=== PATIENT | male | born 1945 | race Caucasian/White ===

== ENCOUNTER 2016-03-11 08:36 | Outpatient (CLI) | payer MEDICARE, OTHER | END 2016-03-11 08:37 | disposition home or self-care (01) | DX: E78.2 Mixed hyperlipidemia (principal); Z79.899 Other long term (current) drug therapy; N40.0 Benign prostatic hyperplasia without lower urinary tract symptoms; R73.09 Other abnormal glucose ==

== ENCOUNTER 2016-04-17 22:13 | Emergency (ER) | payer MEDICARE, OTHER ==
[2016-04-17] MEDS ORDERED: ACETAMINOPHEN 500 MG TABLET PO STA (22:26)
[2016-04-17] MEDS ORDERED: SODIUM CHLORIDE 0.9% 1,000 ML IV ONE (22:26)
[2016-04-17] MEDS ORDERED: ACETAMINOPHEN 1,000 MG/100 ML 100 ML IV ONE (22:34)
[2016-04-17] MEDS ORDERED: ACETAMINOPHEN 1,000 MG/100 ML 100 ML IV STA (23:09)
[2016-04-18] MEDS ORDERED: IBUPROFEN 600 MG TABLET PO ONE
== END 2016-04-18 00:50 | disposition home or self-care (01) ==
DX: R50.9 Fever, unspecified (principal); I10 Essential (primary) hypertension; R94.31 Abnormal electrocardiogram [ECG] [EKG]; E78.00 Pure hypercholesterolemia, unspecified; Z86.73 Personal history of transient ischemic attack (TIA), and cerebral infarction without residual deficits; Z87.442 Personal history of urinary calculi
CPT/HCPCS: 36415; 70450; 71020; 80053; 81001; 83605; 83690; 83735; 83880; 84100; 84443; 84484; 85025; 85610; 85730; 87040; 87275; 87276; 93005; 93010; 96361; 96365; 99284; 99285; J0131

== ENCOUNTER 2016-10-21 07:43 | Outpatient (CLI) | payer MEDICARE, OTHER ==
[2016-10-21 08:31] LABS: BUN - BLOOD UREA NITROGEN 15 mg/dL (6-20); CARBON DIOXIDE - CO2 27 mmol/L (21-32); CHLORIDE 102 mmol/L (101-111); CHOLESTEROL 116 mg/dL; GFR - MDRD 74 (>89); HDL CHOLESTEROL 29 mg/dL; LDL/HDL RATIO 1.6 (<3.6); POTASSIUM 3.8 mmol/L (3.5-5.0); SODIUM 137 mmol/L (135-145); TRIGLYCERIDES 203 mg/dL; VLDL CHOLESTEROL 41 mg/dL
[2016-10-23 14:07] LABS: TEST RESULT REPORT (())
== END 2016-10-21 07:44 | disposition home or self-care (01) ==
LOC: LAB 07:43
PROVIDERS: ATTEND Internal Medicine Cardiovascular Disease
DX: E78.5 Hyperlipidemia, unspecified (principal); Z79.899 Other long term (current) drug therapy
CPT/HCPCS: 36415; 80051; 80061; 81599; 82172; 82565; 84450; 84520

== ENCOUNTER 2017-03-09 08:11 | Outpatient (CLI) | payer MEDICARE, OTHER ==
[2017-03-09 08:42] LABS: BASOPHILS % (AUTO) 0.7 %; EOSINOPHILS # (AUTO) 0.1 10^3/uL (0.0-0.7); EOSINOPHILS % (AUTO) 1.8 %; HGB - HEMOGLOBIN 13.9 g/dL (14.0-18.0); LYMPHOCYTES # (AUTO) 2.6 10^3/uL (1.5-3.5); LYMPHOCYTES % (AUTO) 37.9 %; MEAN CORPUSCULAR HEMOGLOBIN 28.7 pg (27.0-31.0); MEAN CORPUSCULAR HGB CONC 34.1 g/dL (32.0-36.0); MEAN CORPUSCULAR VOLUME 84.1 fL (80.0-94.0); MEAN PLATELET VOLUME 8.1 fL (7.4-11.4); MONOCYTES # (AUTO) 0.6 10^3/uL (0.0-1.0); MONOCYTES % (AUTO) 8.4 %; NEUTROPHILS # (AUTO) 3.5 10^3/uL (1.5-6.6); NEUTROPHILS % (AUTO) 51.2 %; PLT - PLATELET COUNT 166 10^3/uL (130-450); RED BLOOD COUNT 4.85 10^6/uL (4.70-6.10); RED CELL DISTRIBUTION WIDTH 13.9 % (12.0-15.0); WHITE BLOOD COUNT 6.8 x10^3/uL (4.8-10.8)
[2017-03-09 08:59] LABS: HB2 TOTAL 15.4 g/dL; HEMOGLOBIN A1C 0.7 g/dL; HEMOGLOBIN A1C % 6.3 % (4.6-6.2)
[2017-03-09 09:01] LABS: ALBUMIN 3.9 g/dL (3.2-5.5); ALBUMIN/GLOBULIN RATIO 1.1 (1.0-2.2); ALKALINE PHOSPHATASE 53 IU/L (42-121); ALT ALANINE AMINOTRANSFERASE 33 IU/L (10-60); AST ASPARTATE AMINOTRANSFERASE 32 IU/L (10-42); BILIRUBIN,TOTAL 0.8 mg/dL (0.2-1.0); BUN - BLOOD UREA NITROGEN 12 mg/dL (6-20); CALCIUM 9.3 mg/dL (8.5-10.3); CARBON DIOXIDE - CO2 26 mmol/L (21-32); CHLORIDE 101 mmol/L (101-111); CHOL/HDL RATIO 3.9 (<5.0); CHOLESTEROL 117 mg/dL; GFR - MDRD 74 (>89); GLUCOSE 124 mg/dL (70-100); HDL CHOLESTEROL 30 mg/dL; LDL CHOLESTEROL,CALCULATED 55 mg/dL; LDL/HDL RATIO 1.8 (<3.6); SODIUM 137 mmol/L (135-145); TOTAL PROTEIN 7.5 g/dL (6.7-8.2); VLDL CHOLESTEROL 32 mg/dL
== END 2017-03-09 08:12 | disposition home or self-care (01) ==
LOC: LAB 08:11
PROVIDERS: ATTEND Internal Medicine
DX: R73.09 Other abnormal glucose (principal); I10 Essential (primary) hypertension; E78.5 Hyperlipidemia, unspecified; N40.0 Benign prostatic hyperplasia without lower urinary tract symptoms; I48.91 Unspecified atrial fibrillation
CPT/HCPCS: 36415; 80053; 80061; 83036; 83721; 85025

== ENCOUNTER 2017-04-06 11:45 | Outpatient (CLI) | payer MEDICARE, OTHER | END 2017-04-06 11:46 | disposition home or self-care (01) | LOC: LAB 11:45 | PROVIDERS: ATTEND Urology | DX: Z12.5 Encounter for screening for malignant neoplasm of prostate (principal) | CPT/HCPCS: 36415; G0103; 84153 ==

== ENCOUNTER 2017-06-11 10:13 | Outpatient (CLI) | payer MEDICARE, OTHER ==
[2017-06-11 10:47] LABS: BASOPHILS # (AUTO) 0.1 10^3/uL (0.0-0.1); BASOPHILS % (AUTO) 0.9 %; EOSINOPHILS # (AUTO) 0.1 10^3/uL (0.0-0.7); EOSINOPHILS % (AUTO) 1.4 %; HGB - HEMOGLOBIN 14.5 g/dL (14.0-18.0); LYMPHOCYTES # (AUTO) 1.9 10^3/uL (1.5-3.5); MEAN CORPUSCULAR HEMOGLOBIN 28.6 pg (27.0-31.0); MEAN CORPUSCULAR HGB CONC 33.9 g/dL (32.0-36.0); MEAN CORPUSCULAR VOLUME 84.3 fL (80.0-94.0); MEAN PLATELET VOLUME 7.7 fL (7.4-11.4); MONOCYTES # (AUTO) 0.6 10^3/uL (0.0-1.0); MONOCYTES % (AUTO) 8.7 %; NEUTROPHILS # (AUTO) 4.2 10^3/uL (1.5-6.6); PLT - PLATELET COUNT 177 10^3/uL (130-450); RED BLOOD COUNT 5.07 10^6/uL (4.70-6.10); RED CELL DISTRIBUTION WIDTH 13.9 % (12.0-15.0); WHITE BLOOD COUNT 6.9 x10^3/uL (4.8-10.8)
[2017-06-11 10:56] LABS: CREATININE 0.8 mg/dL (0.6-1.2)
== END 2017-06-11 10:14 | disposition home or self-care (01) ==
LOC: LAB 10:13
PROVIDERS: ATTEND Internal Medicine Cardiovascular Disease
DX: I42.8 Other cardiomyopathies (principal); I48.2 Chronic atrial fibrillation; E26.09 Other primary hyperaldosteronism
CPT/HCPCS: 36415; 80051; 82565; 84520; 85025

== ENCOUNTER 2017-09-12 09:10 | Inpatient (IN) | payer MEDICARE, OTHER ==
[2017-09-12] MEDS ORDERED: IOPAMIDOL-300 100 ML VIAL ONE (09:24)
[2017-09-12] MEDS ORDERED: ACETAMINOPHEN 325 MG TABLET PO STA (09:27)
[2017-09-12] MEDS ORDERED: SODIUM CHLORIDE 0.9% 1,000 ML IV ONE (09:27)
--- NOTE | 2017-09-12 09:29 | ED Physician Documentation ---
History of Present Illness - Stated complaint Stated Complaint: POSS CVA - Chief complaint Chief Complaint: Neuro - Additonal information Additional information: hx from pt 71 male to ED with 2 problems 1) high fever - no [employer] CP AP, nauseated by no vomiting, no diarrhea, no cough , no urinary sx, pain behind R knee but no rash 2) expressive aphasia, onset not known, was noticed at 9 AM today, last normal last night, has a fib on xarelto per had expressive aphasia with a fever in the past, aphasia resolved when fver did, no source for fever was found but the next day he was found to have cellultis of the LLE related to a new med he started on PMD DR Olivo Review of Systems Constitutional: reports: Fever Eyes: denies: Decreased vision Ears: denies: Loss of hearing Throat: denies: Sore throat Cardiac: denies: Chest pain / pressure, Palpitations Respiratory: denies: Dyspnea, Cough GI: reports: Nausea. denies: Abdominal Pain, Vomiting, Diarrhea : denies: Dysuria Skin: denies: Rash (none new) Musculoskeletal: denies: Neck pain, Back pain Neurologic: reports: Difficulty speaking. denies: Generalized weakness, Focal weakness, Numbness, Seizure, Altered mental status, Headache, Head injury Endocrine: reports: Easy bruising / bleeding (xarelto) Immunocompromised: denies: Immunocompromised PD PAST MEDICAL HISTORY - Past Medical History Cardiovascular: Hypertension, High cholesterol, Atrial fibrillation, Valve disorder GI: Hiatal hernia : Benign prostate hypertrophy, Kidney stones Derm: Other - Past Surgical History Past Surgical History: Yes - Present Medications Home Medications: Ambulatory Orders Medication Instructions Recorded Confirmed Amlodipine Besylate 10 mg PO DAILY 07/27/12 09/12/17 Carvedilol 25 mg PO BID 08/09/13 09/12/17 Digoxin [Digox] 250 mcg PO DAILY 08/09/13 09/12/17 Finasteride 5 mg PO DAILY 08/09/13 09/12/17 Losartan Potassium 100 mg PO DAILY 08/09/13 09/12/17 Tamsulosin [Flomax] 0.4 mg PO 1730 08/09/13 09/12/17 Apixaban [Eliquis] 5 mg PO BID 04/17/16 09/12/17 Rosuvastatin Calcium 5 mg PO DAILY 09/12/17 09/12/17 Spironolactone 100 mg PO Q2D@0600 09/12/17 09/12/17 - Allergies Allergies/Adverse Reactions: Allergies Allergy/AdvReac Type Severity Reaction Status Date / Time bee venom protein (honey bee) Allergy Anaphylaxis Verified 09/12/17 09:21 - Social History Does the pt smoke?: No Smoking Status: Never smoker Does the pt drink ETOH?: Yes Does the pt have substance abuse?: No - POLST Patient has POLST: No PD ED PE NORMAL - Vitals Vital signs reviewed: Yes (febrile tachy tachypnic hypertensive) - General General: Alert and oriented X 3 - HEENT HEENT: Atraumatic, PERRL - Neck Neck: No bony TTP - Cardiac Cardiac: RRR - Respiratory Respiratory: No respiratory distress, Clear bilaterally - Abdomen Abdomen: Soft, Non tender - Derm Derm: Normal color - Extremities Extremities: Normal ROM s pain - Neuro Neuro: Alert and oriented X 3, arts administrator 2-12 intact, No motor deficit, No sensory deficit, Other. No: Normal speech (expressive aphasia) Eye Opening: Spontaneous Motor: Obeys Commands Verbal: Oriented GCS Score: 15 - Psych Psych: Normal mood Results - Vitals Vitals: Vital Signs - 24 hr 09/12/17 09/12/17 09/12/17 09:15 10:44 11:00 Temperature 39.3 C H 38.2 C H Heart Rate 138 H 109 H 108 H Respiratory 26 H 25 H 27 H Rate Blood Pressure 140/94 H 128/75 126/81 H O2 Saturation 96 94 93 09/12/17 11:33 Temperature Heart Rate 96 Respiratory 27 H Rate Blood Pressure 132/78 H O2 Saturation 93 Oxygen O2 Source Room air - EKG (time done) 0954 Rate: Rate (enter#) (114) Rhythm: Atrial fibrillation Intervals: RBBB Ischemia: ST depression (precordial) Other comments: Other comments (similar to 2017 EKG) - Labs Labs: Laboratory Tests 09/12/17 09/12/17 09/12/17 09:17 09:20 09:20 WBC 20.5 H RBC 4.92 Hgb 14.0 Hct 41.6 L MCV 84.6 MCH 28.5 MCHC 33.6 RDW 14.3 Plt Count 161 MPV 8.0 Neut # (Auto) 18.1 H Lymph # (Auto) 0.7 L Merrick # (Auto) 1.3 H Eos # (Auto) 0.0 Baso # (Auto) 0.3 H Absolute Nucleated RBC 0.00 Band Neuts % (Manual) Not Reportable Abnorm Lymph % (Manual) Not Reportable Nucleated RBC % 0.0 Neutrophils # (Manual) Not Reportable Lymphocytes # (Manual) Not Reportable Monocytes # (Manual) Not Reportable Eosinophils # (Manual) Not Reportable Basophils # (Manual) Not Reportable Differential Comment MANUAL=AUTO DIFF WBC Morphology 1+ REACTIVE LYMPHS Sodium 130 L Potassium 4.2 Chloride 96 L Carbon Dioxide 24 Anion Gap 10.0 BUN 18 Creatinine 1.1 Estimated GFR (MDRD) 66 L Glucose 159 H POC Whole Bld Glucose 136 H Lactic Acid Calcium 9.1 Total Bilirubin 1.3 H AST 36 ALT 37 Alkaline Phosphatase 60 Total Protein 7.8 Albumin 4.1 Globulin 3.7 Albumin/Globulin Ratio 1.1 Lipase 32 TSH Urine Color Urine Clarity Urine pH Ur Specific [place] Urine Protein Urine Glucose (UA) Urine Ketones Urine Occult Blood Urine Nitrite Urine Bilirubin Urine Urobilinogen Ur Leukocyte Esterase Urine RBC Urine WBC Ur Squamous Epith Cells Urine Bacteria Ur Microscopic Review Urine Culture Comments 09/12/17 09/12/17 09/12/17 09:20 09:20 10:40 WBC RBC Hgb Hct MCV MCH MCHC RDW Plt Count MPV Neut # (Auto) Lymph # (Auto) Merrick # (Auto) Eos # (Auto) Baso # (Auto) Absolute Nucleated RBC Band Neuts % (Manual) Abnorm Lymph % (Manual) Nucleated RBC % Neutrophils # (Manual) Lymphocytes # (Manual) Monocytes # (Manual) Eosinophils # (Manual) Basophils # (Manual) Differential Comment WBC Morphology Sodium Potassium Chloride Carbon Dioxide Anion Gap BUN Creatinine Estimated GFR (MDRD) Glucose POC Whole Bld Glucose Lactic Acid 2.4 H Calcium Total Bilirubin AST ALT Alkaline Phosphatase Total Protein Albumin Globulin Albumin/Globulin Ratio Lipase TSH 1.37 Urine Color YELLOW Urine Clarity CLEAR Urine pH 7.0 Ur Specific [place] <=1.005 Urine Protein 30 H Urine Glucose (UA) NEGATIVE Urine Ketones NEGATIVE Urine Occult Blood MODERATE H Urine Nitrite NEGATIVE Urine Bilirubin NEGATIVE Urine Urobilinogen 1 (NORMAL) Ur Leukocyte Esterase NEGATIVE Urine RBC TNTC H Urine WBC 4-5 Ur Squamous Epith Cells RARE Squamous Urine Bacteria Rare Ur Microscopic Review INDICATED Urine Culture Comments NOT INDICATED - Rads (name of study) CXR Radiology: See rad report (mild bibasilar opacity atelectasis or infiltrate) CTH Radiology: See rad report (no acute) CTA brain Radiology: See rad report (no acute) CTA neck Radiology: See rad report (no acute) PD MEDICAL DECISION MAKING - ED course ED course: pt is not a TPA candidate 2/2 xarelto and last known normal was last night has had similar sx with infection before CTH no acute process CTA head and neck no acute could consider MRI and echo but does not need transfer to neuro facility as ED wup does not show indication for TPA or IR pt is septic CXR non diagnostic - could be infiltrates could be atelectais urine nwg elev lactate per last time it ended up being LLE cellulitis but not visible on initial exam will start empiric ab including vanco for skin will admit called hospitalist at 1125 AM - Sepsis Event Vital Signs: Vital Signs - 24 hr 09/12/17 09/12/17 09/12/17 09:15 10:44 11:00 Temperature 39.3 C H 38.2 C H Heart Rate 138 H 109 H 108 H Respiratory 26 H 25 H 27 H Rate Blood Pressure 140/94 H 128/75 126/81 H O2 Saturation 96 94 93 09/12/17 11:33 Temperature Heart Rate 96 Respiratory 27 H Rate Blood Pressure 132/78 H O2 Saturation 93 Oxygen O2 Source Room air Departure - Departure Disposition: 66 [facility] DC/Xfer Clinical Impression: Aphasia, Hematuria Sepsis Qualifiers: Sepsis type: sepsis due to unspecified organism Qualified Code(s): A41.9 - Sepsis, unspecified organism Condition: Serious Discharge Date/Time: 09/12/17 13:02 NIHSS - Time Time: 09:20 - Level of Consciousness Level of consciousness: (0) Alert, Keenly responsive LOC Questions: (0) Answers both Q's correct LOC Commands: (0) Performs both correctly - Gaze Best Gaze: (0) Normal - Visual Visual: (0) No loss - Facial Palsy Facial Palsy: (0) Normal, symmetrical movement - Motor Arms (both separate) Motor Arm (right): (0) No drift Motor Arm (left): (0) No drift - Motor Legs (both separate) Motor Leg (right): (0) No drift Motor Leg (left): (0) No drift - Limb Ataxia Limb Ataxia: (0) Absent - Sensory Sensory: (0) Normal - Best Language Best Language: (2) Severe aphasia - Dysarthria Dysarthria: (0) Normal - Extinction and Inattention (formally neg Extinction and inattention: (0) No abnormality - Total Score/Results Total Score/Result: 2
[2017-09-12 09:46] LABS: BASOPHILS # (AUTO) 0.3 10^3/uL (0.0-0.1); BASOPHILS % (AUTO) 1.6 %; LYMPHOCYTES # (AUTO) 0.7 10^3/uL (1.5-3.5); LYMPHOCYTES % (AUTO) 3.5 %; MEAN CORPUSCULAR HEMOGLOBIN 28.5 pg (27.0-31.0); MEAN CORPUSCULAR HGB CONC 33.6 g/dL (32.0-36.0); MEAN CORPUSCULAR VOLUME 84.6 fL (80.0-94.0); MONOCYTES # (AUTO) 1.3 10^3/uL (0.0-1.0); MONOCYTES % (AUTO) 6.4 %; NEUTROPHILS # (AUTO) 18.1 10^3/uL (1.5-6.6); NEUTROPHILS % (AUTO) 88.5 %; PLT - PLATELET COUNT 161 10^3/uL (130-450); RED BLOOD COUNT 4.92 10^6/uL (4.70-6.10); RED CELL DISTRIBUTION WIDTH 14.3 % (12.0-15.0); WHITE BLOOD COUNT 20.5 x10^3/uL (4.8-10.8)
[2017-09-12] MEDS ORDERED: IOPAMIDOL-300 100 ML VIAL IVP ONE (09:54)
[2017-09-12 09:55] LABS: ALBUMIN 4.1 g/dL (3.2-5.5); ALBUMIN/GLOBULIN RATIO 1.1 (1.0-2.2); BILIRUBIN,TOTAL 1.3 mg/dL (0.2-1.0); CALCIUM 9.1 mg/dL (8.5-10.3); CREATININE 1.1 mg/dL (0.6-1.2); TOTAL PROTEIN 7.8 g/dL (6.7-8.2)
--- NOTE | 2017-09-12 10:04 | XRAY Report ---
Procedure Date: 09/12/2017 Accession Number: [id number] / [id number] Procedure: XR - Chest 2 View X-Ray CPT Code: 33699 FULL RESULT: EXAM: CHEST RADIOGRAPHY EXAM DATE: 09/12/2017 09:49 AM. CLINICAL HISTORY: Fever. COMPARISON: 04/17/2016. TECHNIQUE: 2 views. FINDINGS: Lungs/Pleura: Mild central pulmonary vascular congestion. Mild bibasal opacity, atelectasis or infiltrate. Mediastinum: Mild cardiomegaly. Mildly tortuous aorta. Other: None. IMPRESSION: Mild bibasal opacity, atelectasis or infiltrate. Cardiomegaly. RADIA
--- NOTE | 2017-09-12 10:05 | CT Report ---
Procedure Date: 09/12/2017 Accession Number: [id number] / [id number] Procedure: CT - Head W/O Stroke Protocol CPT Code: FULL RESULT: EXAM: CT HEAD EXAM DATE: 09/12/2017 09:32 AM. CLINICAL HISTORY: Expressive aphasia. COMPARISON: CT head 04/17/2016. TECHNIQUE: Multiaxial CT images were obtained from the foramen magnum to the vertex. Reformats: Sagittal and coronal. IV contrast: None. In accordance with CT protocol optimization, one or more of the following dose reduction techniques were utilized for this exam: automated exposure control, adjustment of mA and/or KV based on patient size, or use of iterative reconstructive technique. FINDINGS: Parenchyma: Chronic right parietal dystrophic calcification and multifocal areas of encephalomalacia in the right occipital, right posterior temporal, right parietal, and left frontal lobe, similar to prior. No evidence of acute infarction. No intraparenchymal hemorrhage. Extraaxial Spaces: Normal for age. No subdural or epidural collections identified. Ventricles: Normal in size and position accounting for mild generalized cerebral and cerebellar volume loss. Sinuses and Orbits: Imaged paranasal sinuses, orbits, and mastoids show no significant abnormality. Bones: No evidence of fracture or calvarial defect. Other: None. IMPRESSION: 1. No definite acute intracranial abnormality. 2. Stable multifocal areas of cortical encephalomalacia and dystrophic calcification at the right parietal lobe. RADIA The call report notification system was initiated by Dr. Lavell Ramos at 10:00 hrs on 09/12/17. The above findings were discussed with Kyra Gonzalez by Dr. Lavell Ramos at 10:04 hrs on 09/12/17.
[2017-09-12 10:10] LABS: DIFFERENTIAL COMMENT MANUAL=AUTO DIFF
[2017-09-12] MEDS ORDERED: metroNIDAZOLE 500 MG/100 ML 500 MG/100 ML BAG IV STA (10:17)
[2017-09-12] MEDS ORDERED: CEFEPIME 2 GM in SODIUM CHLORIDE 0.9% MINIBAG 100 ML IV STA (10:17)
--- NOTE | 2017-09-12 10:28 | CT Report ---
Procedure Date: 09/12/2017 Accession Number: [id number] / [id number] Procedure: CT - Neck Angio CPT Code: FULL RESULT: EXAM: CT ANGIOGRAM NECK EXAM DATE: 09/12/2017 09:50 AM. CLINICAL HISTORY: Expressive aphasia. COMPARISON: HEAD W/O 04/17/2016. TECHNIQUE: Routine axial helical imaging was performed from the skull base through the aortic arch. Reconstructions: Routine multiplanar 3D MIP reconstructions. IV Contrast: 100 cc Isovue-300. Evaluation of arterial stenosis is based on a NASCET method of measurement. In accordance with CT protocol optimization, one or more of the following dose reduction techniques were utilized for this exam: automated exposure control, adjustment of mA and/or KV based on patient size, or use of iterative reconstructive technique. FINDINGS: Mild tortuosity and calcification of the aortic arch is noted. Normal three-vessel branching is seen. Moderate tortuosity and minimal scattered atherosclerotic calcification is seen involving great vessels off the arch. Right Carotid: The common carotid, internal carotid, and external carotid arteries are widely patent. No dissection, significant atherosclerotic plaque, or calcification identified. Minimal atherosclerotic calcification is seen at the CCA bifurcation. Left Carotid: The common carotid, internal carotid, and external carotid arteries are widely patent. No dissection, significant atherosclerotic plaque, or calcification identified. Minimal atherosclerotic calcification is seen at the CCA bifurcation and proximal ICA. Vertebrals: The vertebrobasilar system shows no stenoses. Intracranial Circulation: Normal. No stenoses or aneurysms of the visualized vessels. Other: The bones, soft tissues, and lung apices are within normal limits. Mild scattered cervical spondylosis is noted. IMPRESSION: 1. Unremarkable neck CT angiogram. No hemodynamically significant stenoses. No dissection. 2. Tortuosity of great vessels off the arch in the thoracic inlet. RADIA
--- NOTE | 2017-09-12 10:28 | CT Report ---
Procedure Date: 09/12/2017 Accession Number: [id number] / [id number] Procedure: CT - Head Angio CPT Code: FULL RESULT: EXAM: CT ANGIOGRAM HEAD. CT SCAN OF THE HEAD WITH CONTRAST. EXAM DATE: 09/12/2017 09:50 AM CLINICAL HISTORY: Expressive aphasia. Left-sided weakness. History of stroke. COMPARISON: CT scan of the head without contrast 09/12/2017, 04/17/2016. CT angiogram of the neck 09/12/2017. TECHNIQUE: - CT Scan Head: Using a multidetector scanner, axial images were acquired from the foramen magnum to the skull vertex following contrast administration. - CT Angiogram: Using a multidetector scanner, high-resolution axial images were acquired from the skull base through vertex following rapid infusion of intravenous contrast. Reformats: Multiplanar MIP reformats were reconstructed. Nascet criteria used for stenosis measurement. IV Contrast: 100 cc Isovue-300. In accordance with CT protocol optimization, one or more of the following dose reduction techniques were utilized for this exam: automated exposure control, adjustment of mA and/or KV based on patient size, or use of iterative reconstructive technique. FINDINGS: POST-CONTRAST HEAD: No abnormal enhancement. Cystic encephalomalacia with dystrophic calcification is seen from old infarct in the right occipital lobe. Subtle smaller focus of encephalomalacia is seen in the high posterior left superior frontal gyrus as well. This too is consistent with old ischemic change. These are unchanged. CT ANGIOGRAM HEAD: RIGHT: Internal Carotid artery: No evidence of dissection. No evidence of aneurysm along the intracranial ICA. Mild atherosclerotic calcification is seen. Anterior Cerebral Artery: Patent without significant stenosis, aneurysm, or vascular malformation. Middle Cerebral Artery: Patent without significant stenosis, aneurysm, or vascular malformation. Posterior Cerebral Artery: Patent without significant stenosis, aneurysm, or vascular malformation. Posterior Communicating Artery: Not well visualized. Vertebral Artery: Patent without significant stenosis. No evidence of dissection. The right PICA is dominant arising from the mid V4 segment. LEFT: Internal Carotid artery: No evidence of dissection. No evidence of aneurysm along the intracranial ICA. Mild atherosclerotic calcification is seen. Anterior Cerebral Artery: Patent without significant stenosis, aneurysm, or vascular malformation. Middle Cerebral Artery: Patent without significant stenosis, aneurysm, or vascular malformation. Posterior Cerebral Artery: Patent without significant stenosis, aneurysm, or vascular malformation. Posterior Communicating Artery: Patent. No aneurysm. Vertebral Artery: Patent without significant stenosis. No evidence of dissection. CENTRAL: Anterior Communicating Artery: Patent. No aneurysm. Basilar Artery: Patent without significant stenosis. No aneurysm. The left eye is dominant. Bilateral superior cerebellar arteries are patent. 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 Note is made of origin of the right superior cerebellar artery off the P1 segment of the BRIDGE WELDER. DURAL VENOUS SINUSES AND MAJOR CENTRAL VEINS: Patent. IMPRESSION: CT Head postcontrast: (See report of noncontrast head CT performed same day.) 1. No abnormal intracranial enhancement. CTA Head: 1. Unremarkable CTA of the head. No significant vascular stenosis, dissection, or aneurysm. RADIA
[2017-09-12 10:50] LABS: BILIRUBIN,URINE NEGATIVE (NEGATIVE); GLUCOSE, URINE (UA) NEGATIVE (NEGATIVE); KETONES,URINE (UA) NEGATIVE (NEGATIVE); LEUKOCYTE ESTERASE, URINE NEGATIVE (NEGATIVE); NITRITE,URINE NEGATIVE (NEGATIVE); OCCULT BLOOD,URINE MODERATE (NEGATIVE); PROTEIN,URINE 30 mg/dL (NEGATIVE); UROBILINOGEN,URINE 1 (NORMAL) E.U./dL (NORMAL)
[2017-09-12 10:59] LABS: CLARITY,URINE CLEAR (CLEAR)
[2017-09-12 11:12] LABS: BACTERIA,URINE Rare /HPF (None Seen); RBC,URINE TNTC /HPF (0-5); SQUAMOUS EPITHELIAL CELL,UR RARE Squamous (<= Few)
[2017-09-12] MEDS ORDERED: SODIUM CHLORIDE 0.9% 2,000 ML IV ONE (11:21)
[2017-09-12] MEDS ORDERED: SODIUM CHLORIDE FLUSH 0.9% 10 ML SYRINGE IVP PRN (11:47)
[2017-09-12] MEDS: VANCOMYCIN INJ 2.5 GM in SODIUM CHLORIDE 0.9% 500 ML IV STA ×2 (12:08→12:27)
--- NOTE | 2017-09-12 13:35 | HISTORY & PHYSICAL EXAMINATION ---
Chief Complaint - Chief Complaint Chief Complaint: fever, chills, fatigue, and joint aches History of Present Illness - Admitted From Admitted From:: ED - History Obtained From Records Reviewed: yes History obtained from: chart review, patient, patient's girlfriend Exam Limitations: AMS - History of Present Illness HPI Comment/Other: Trey Batista is an ill appearing 71-year old male with a past medical history of hypertension, hyperlipidemia, atrial fibrillation, prior CVAs with ataxia as a residual, murmur, obesity, hiatal hernia, BPH, kidney stones. He presented to the ED today with a primary complaint of fever, chills and increased confusion. His symptoms started yesterday and included slurred speech, altered mental status, fatigue, body aches, fever, chills, nausea without vomiting, and anorexia. He denies recent falls, chest pain or pressure, a productive cough, vomiting, changes in bowel habits, recent travel, sick contacts, or aspiration events. He is accompanied by his girlfriend, Jamaal who helped with some of the H /P details. She states that 2 days ago he was outside working, moving dirt for their garden and in his normal state of health. He had been to his PCP in the past few weeks for a rash that developed on his back and for LLE cellulitis. He was given oral antibiotics out patient. He will be admitted for pneumonia and sepsis as inpatient. History - Past Medical History Cardiovascular: reports: Hypertension, High cholesterol, Atrial fibrillation, Valve disorder Respiratory: reports: Shortness of breath Neuro: reports: CVA, TIA Endocrine/Autoimmune: reports: None GI: reports: Hiatal hernia GENETICS NURSE: reports: None : reports: Benign prostate hypertrophy, Nocturia, Frequency, Kidney stones HEENT: reports: Chronic vision loss Psych: reports: Depression Musculoskeletal: reports: Fatigue, Chronic back pain Derm: reports: Other MRSA Hx?: Yes - Past Surgical History General: reports: Other (abdominal hernia repair) - Family & Social History Family History: Mother: , Father: Family History Comment/Other: The patient's parents are both and had both had cardiac disease. Living arrangement: At home Living Situation: With spouse/s.o. (girlfriend, Jamaal) Social History Notes: [place] with his girlfriend, Jamaal. 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 He continues to drive and is still physically active. He denies the use of tobacco, alcohol, or illicit drug use. He wishes to be a FULL code. - Substance History Use: Uses substance without health or social issues: NONE Abuse: Recurrent use of substance despite neg consequences: NONE Dependence: Experiences withdrawal or developed tolerances: NONE - POLST Patient has POLST: No POLST Status: Full Code Meds/Allgy - Home Medications Home Medications: Ambulatory Orders Medication Instructions Recorded Confirmed RX: Amlodipine Besylate 10 mg PO DAILY 07/27/12 09/12/17 RX: Carvedilol 25 mg PO BID 08/09/13 09/12/17 RX: Digoxin [Digox] 250 mcg PO DAILY 08/09/13 09/12/17 RX: Finasteride 5 mg PO DAILY 08/09/13 09/12/17 RX: Losartan Potassium 100 mg PO DAILY 08/09/13 09/12/17 RX: Tamsulosin [Flomax] 0.4 mg PO 1730 08/09/13 09/12/17 Apixaban [Eliquis] 5 mg PO BID 04/17/16 09/12/17 RX: Rosuvastatin Calcium 5 mg PO DAILY 09/12/17 09/12/17 RX: Spironolactone 100 mg PO Q2D@0600 09/12/17 09/12/17 - Allergies Allergies/Adverse Reactions: Allergies Allergy/AdvReac Type Severity Reaction Status Date / Time bee venom protein (honey bee) Allergy Anaphylaxis Verified 09/12/17 09:21 Review of Systems - Constitutional Constitutional: reports: Fatigue, Fever, Chills, Weakness, Poor appetite - Eyes Eyes: reports: Blurred vision, Corrective lenses - Ears, Nose & Throat Ears, Nose & Throat: reports: Hearing loss, Postnasal drainage - Cardiovascular Cariovascular: reports: Irregular heart rate, Palpitations, Edema, Exertional dyspnea, Decr. exercise tolerance, Orthopnea - Respiratory Respiratory: reports: Orthopnea, SOB at rest, SOB with exertion - Gastrointestinal Gastrointestinal: reports: Abdominal distention, Nausea, Reflux/heartburn, Poor appetite. denies: Vomiting - Genitourinary Genitourinary: reports: Frequency, Urgency, Hematuria, Nocturia - Musculoskeletal Musculoskeletal: reports: Back pain, Muscle aches, Joint pain (achey) - Integumentary Integumentary: reports: Rash (LLE, back), Dryness - Neurological Neurological: reports: General weakness, Dizziness, Memory problems, Pre- existing deficit, Slurred speech - Psychiatric Psychiatric: reports: Depression - Hematologic/Lymphatic Hematologic/Lymphatic: reports: Anemia, Bleeding tendencies (on Eliquis), Recurrent infections - All Other Systems All Other Systems: reports: Reviewed and negative Exam - Vital Signs Reviewed Vital Signs: Yes Vital Signs: Vital Signs x48h Temp Pulse Pulse Resp BP BP Pulse Ox 09/12/17 13:22 37.8 C H 107 H 18 142/89 H 96 09/12/17 12:30 74 22 148/88 H 100 09/12/17 12:00 104 H 20 133/81 H 93 - Physical Exam General Appearance: positive: No acute distress, Alert, Lethargic Eyes Bilateral: positive: Normal inspection, PERRL ENT: positive: ENT inspection nml, Pharynx nml, Dry mucous membranes Neck: positive: Nml inspection, No JVD, Lymphadenopathy (R), Lymphadenopathy (L) Respiratory: positive: Chest non-tender, Rhonchi Cardiovascular: positive: Irregularly irregular, Tachycardia, Systolic murmur, Decreased pulse(s) Peripheral Pulses: positive: 1+ Abdomen: positive: Non-tender, Nml bowel sounds, Other (obese, firm) Back: positive: Nml inspection Skin: positive: No rash, Warm, Dry Extremities: positive: Non-tender, Nml appearance, Pedal edema, Joint swelling Neurologic/Psychiatric: positive: Oriented x3, Weakness, Sensory loss, Slurred/ abnml speech (expressive aphasia, sluggish speech), Depressed mood/affect Reflexes: Bicep (R): 3+, Bicep (L): 3+ Conclusion/Plan - Problem List (1) Pneumonia Conclusion/Plan: The patient is found to have an elevated WBC count ~20, a non-productive mild cough, body aches, fevers, chills, anorexia, and fatigue. He has not required supplemental oxygen, but imaging shows bilateral infiltrates. His urine is another source of infection, and the cultures are pending. Blood cultures are pending. I will order a sputum sample. Plan: Continue septic work up, and await cultures. Qualifiers: Laterality: bilateral Lung location: lower lobe of lung (2) Expressive aphasia Conclusion/Plan: The patient was found to have this starting yesterday at home and expresses frustration with this. He admits to his previous CVAs when he had similar symptoms, but notes that overall, this just does not feel the same as these episodes occur during his fevers, then resolve. Preliminary head CT results show no evidence of acute abnormalities, and stable multifocal areas of cortical encephalomalacia and dystrophic calcification at the right parietal lobe. Upon exam, he is neuro-intact and still demonstrates this. His skin is very hot to the touch, and is found to have continued fevers. Plan: Continue to monitor and obtain a brain MRI. (3) Hematuria Conclusion/Plan: The patient admits to recent increased urinary urgency, frequency, and after arriving to the nursing floor is found to have hematuria. He admits to "urinating in the ED to give a sample and had burning". He has a history of BPH and states he typically gets up at least 3 times per night to urinate. He also has a history of kidney stones. He and his girlfriend state that he sees a urologist for his BPH. He is prescribed Flomax at home, which I will continue here. The urine sample that was collected in the ED shows many bacteria, culture indicated, +proteins, + occult blood. Plan: Continue work up, await urine culture, and monitor for ongoing hematuria. (4) Fever Conclusion/Plan: The patient notes his temp to be as high as 103 F taken orally at home. Upon arrival to the ED, he had an elevated temp of 39.3, and once arriving on the nursing floor had a temp max of 39.2. He was given APAP orally, but ibuprofen was not added due to the bleeding potential. Plan: Continue to monitor and await culture results. Qualifiers: Encounter type: initial encounter (5) Chronic atrial fibrillation with rapid ventricular response Conclusion/Plan: The patient is under the care of Dr. Jose A Bobo, Cardiology with [facility]. Records have been requested. He is prescribed coreg, and digoxin at home, which is continued here. Telemetry shows uncontrolled atrial fibrillation-RVR. This is likely a consequence of his acute illness. His girlfriend states that he took his regular medications this morning. A stat echo shows preliminary results an estimated EF of 60-65%, mild LV hypertrophy, moderate to severe RV enlargement, with RV septal wall flattening, consistent with RV pressure overload. Plan: Continue treat acute illness and continue home medications. (6) Moderate to severe pulmonary hypertension Conclusion/Plan: Preliminary echo results show an RVSP at rest at 48 mmHg. The patient states that he "used to have sleep apnea". His current BMI is 37.5, he is found to have an obese, firm abdomen, and moderate BLE edema. He denies other lung histories, and states that he has never had pneumonia before today. Also, very concerning is that the patient's right ventricle has a flattened septal wall, indicating this is not an acute diagnosis. Plan: Consider sprionolactone when the patient is stable and suggest a formal sleep study upon discharge. (7) Sepsis Conclusion/Plan: The patient has mild altered mental status with expressive aphasia, elevated respiratory rate at 27, a normal blood pressure, an elevated WBC count greater than 20, and the first lactic acid was elevated at 2.4, biliruben of 1.3, and most concerning has been the patient's fever of now 39.2. The most likely source is his pneumonia, and UTI. BC are pending, Urine culture is pending. Plan: Continue IVFs, treatment with vanco, cefepime, and antifungal-Diflucan. Continue frequent VS. Qualifiers: Sepsis type: sepsis due to unspecified organism Qualified Code(s): A41.9 - Sepsis, unspecified organism - Lab Results Lab results reviewed: Yes Edgar Bones: 09/12/17 09:20 09/12/17 16:14 - Diagnostic Imaging Results Diagnostic Imaging Results: positive: Prelim report reviewed, Final report reviewed Diagnostic Imaging Results Comments: EXAM: CHEST RADIOGRAPHY EXAM DATE: 09/12/2017 09:49 AM. IMPRESSION: Mild bibasal opacity, atelectasis or infiltrate. Cardiomegaly. - EKG Results EKG Interpreted Independently: Yes EKG Comparison: Unchanged from prior EKG Core Measures - Anticipated LOS I expect patient to be DC'd or transferred within 96 hours.: Yes - DVT/VTE - Prophylaxis VTE/DVT Device ordered at admit?: Yes VTE/DVT Prophylaxis med ordered at admit?: No Not Ordered - Medical Reason: Contraindicated - Stroke - Rehab Assessment Rehab services assessment to be ordered?: Yes - AMI - Statin at Admit Aspirin Prescribed on Admit: No Not Ordered - Medical Reason: Contraindicated
[2017-09-12] MEDS ORDERED: VANCOMYCIN PER PHARMACY 100 GM in SODIUM CHLORIDE 0.9% 250 ML IV SCH (15:00)
[2017-09-12] MEDS: SODIUM CHLORIDE 0.9% 1,000 ML IV SCH (16:24)
[2017-09-12] MEDS: SODIUM CHLORIDE FLUSH 0.9% 10 ML SYRINGE IVP SCH (16:24)
[2017-09-12 16:25] LABS: INR 2.4 (0.8-1.2); PT - PROTHROMBIN TIME 26.1 secs (9.9-12.6)
[2017-09-12 16:30] LABS: CALCIUM 8.5 mg/dL (8.5-10.3); CREATININE 1.2 mg/dL (0.6-1.2)
[2017-09-12 16:46] LABS: HEMOGLOBIN A1C 0.63 g/dL; HEMOGLOBIN A1C % 6.3 % (4.6-6.2)
[2017-09-12] MEDS: ACETAMINOPHEN 325 MG TABLET PO PRN ×2 (17:24→21:45)
[2017-09-12] MEDS: MAGNESIUM OXIDE 400 MG TABLET PO SCH ×2 (17:24→20:07)
[2017-09-12 17:48] LABS: DIGOXIN 0.8 ng/mL
[2017-09-12] MEDS ORDERED: CARVEDILOL 12.5 MG TABLET PO SCH (21:00)
[2017-09-12] MEDS: CEFEPIME 2 GM in SODIUM CHLORIDE 0.9% MINIBAG 100 ML IV SCH (21:45)
[2017-09-12] MEDS: CARVEDILOL 12.5 MG TABLET PO SCH ×2 (21:46→21:47)
[2017-09-12] MEDS: diltiaZEM 30 MG TABLET PO SCH ×2 (21:46→21:47)
[2017-09-12] MEDS: APIXABAN 2.5 MG TABLET PO SCH (21:46)
[2017-09-13] MEDS: SODIUM CHLORIDE 0.9% 1,000 ML IV SCH ×4 (01:03→23:55)
[2017-09-13] MEDS: VANCOMYCIN INJ 1 GM, VANCOMYCIN INJ 500 MG in SODIUM CHLORIDE 0.9% 500 ML IV SCH ×2 (01:03→14:01)
[2017-09-13] MEDS: SODIUM CHLORIDE FLUSH 0.9% 10 ML SYRINGE IVP SCH ×3 (04:02→16:37)
[2017-09-13] MEDS: diltiaZEM 30 MG TABLET PO SCH ×3 (05:56→20:59)
--- NOTE | 2017-09-13 08:34 | PROVIDER PROGRESS NOTE ---
Subjective - Prog Note Date Prog Note Date: 09/13/17 Prog Note Time: 08:34 - Subjective Pt reports feeling: Improved Subjective: Trey complains of ongoing generalized weakness with ongoing fevers. He states that he ate well, slept well, and has not felt dizzy. Current Medications - Current Medications Current Medications: Vitals Temp Pulse Pulse Resp BP BP BP 09/14/17 09:08 103 H 16 09/14/17 08:22 37.2 C 103 H 18 126/88 H 09/14/17 06:01 129/87 H 09/14/17 04:32 37.2 C 89 20 142/84 H 09/14/17 00:56 37.6 C H 09/13/17 23:42 37.3 C 93 22 129/70 09/13/17 19:52 37.4 C 102 H 20 135/83 H 09/13/17 16:26 84 16 09/13/17 16:11 37.6 C H 80 20 135/81 H 09/13/17 14:05 127/89 H 09/13/17 13:00 37.0 C 87 20 145/103 H 09/13/17 08:24 37.9 C H 95 18 124/79 09/13/17 05:56 123/76 09/13/17 05:00 37.5 C 94 18 123/76 09/13/17 04:00 37.1 C 90 18 118/71 09/13/17 00:25 36.8 C 88 16 118/73 09/12/17 21:46 126/78 09/12/17 20:01 37.9 C H 96 18 126/78 09/12/17 16:00 39.2 C H 96 18 128/82 H 09/12/17 13:22 37.8 C H 107 H 18 142/89 H 09/12/17 12:30 74 22 148/88 H 09/12/17 12:00 104 H 20 133/81 H 09/12/17 11:33 96 27 H 132/78 H 09/12/17 11:00 38.2 C H 108 H 27 H 126/81 H 09/12/17 10:44 109 H 25 H 128/75 09/12/17 09:15 39.3 C H 138 H 26 H 140/94 H Pulse Ox 09/14/17 09:08 08/07/18 08:22 93 09/14/17 06:01 09/14/17 04:32 94 09/14/17 00:56 09/13/17 23:42 93 09/13/17 19:52 92 09/13/17 16:26 09/13/17 16:11 94 09/13/17 14:05 09/13/17 13:00 98 09/13/17 08:24 97 09/13/17 05:56 09/13/17 05:00 95 09/13/17 04:00 95 09/13/17 00:25 94 09/12/17 21:46 09/12/17 20:01 93 09/12/17 16:00 95 09/12/17 13:22 96 09/12/17 12:30 100 09/12/17 12:00 93 09/12/17 11:33 93 09/12/17 11:00 93 09/12/17 10:44 94 09/12/17 09:15 96 Home Meds Medication Instructions Recorded Confirmed Type Amlodipine Besylate 10 mg PO DAILY 07/27/12 09/12/17 History Carvedilol 25 mg PO BID 08/09/13 09/12/17 History Digoxin [Digox] 250 mcg PO DAILY 08/09/13 09/12/17 History Finasteride 5 mg PO DAILY 08/09/13 09/12/17 History Losartan Potassium 100 mg PO DAILY 08/09/13 09/12/17 History Tamsulosin [Flomax] 0.4 mg PO 1730 08/09/13 09/12/17 History Apixaban [Eliquis] 5 mg PO BID 04/17/16 09/12/17 History Rosuvastatin Calcium 5 mg PO DAILY 09/12/17 09/12/17 History Spironolactone 100 mg PO Q2D@0600 09/12/17 09/12/17 History Allergies Allergy/AdvReac Type Severity Reaction Status Date / Time bee venom protein (honey bee) Allergy Anaphylaxis Verified 09/12/17 09:21 Meds Given in ED Acetaminophen (Tylenol) 650 mg PO Q4HR PRN PRN Reason: Pain or Fever > 38C (100.4F) Last Admin: 09/12/17 21:45 Dose: 650 mg Acetaminophen Assessment Document 09/12/17 21:45 MELCHOR (Rec: 09/12/17 21:45 MELCHOR [id number]) Pain or Fever Assessment Fever Yes Re-Assess: Acetaminophen Effectiveness Document 09/12/17 22:45 AFS (Rec: 09/12/17 23:44 AFS [id number]) Effect on Pain or Fever Unable to Assess Asleep Apixaban (Eliquis) 5 mg PO BID [facility] Last Admin: 09/14/17 08:35 Dose: 5 mg Carvedilol (Coreg) 25 mg PO BID [facility] Last Admin: 09/14/17 08:35 Dose: 25 mg Digoxin (Lanoxin) 250 mcg PO DAILY [facility] Last Admin: 09/14/17 08:36 Dose: 250 mcg Diltiazem HCl (Cardizem) 30 mg PO Q8HR [facility] Last Admin: 09/14/17 06:01 Dose: 30 mg Pulse and Blood Pressure Document 09/14/17 06:01 TONO (Rec: 09/14/17 06:04 JEG [id number]) Vital Signs Rate 105 Blood Pressure (90/60-130/80) 129/87 Vancomycin HCl 1 gm/Vancomycin HCl 500 mg/ Sodium Chloride 500 mls @ 334 mls/ hr IV Q12H [facility] Last Infusion: 09/14/17 02:21 Dose: 0 mls/hr Medication Titration Document 09/14/17 02:21 TONO (Rec: 09/14/17 04:20 JEG [id number]) Titration Intake Titration Intake 500 Cumulative Intake 500 Container Volume 0 Elapsed Time 6h 23m Titration Dosing IV Rate 0 Increase/Decrease Infused Cumulative Dose Not Applicable Total Intake (Rx) 1,500 Volume Adjustment/Waste 0 Sodium Chloride (Normal Saline 0.9%) 1,000 mls @ 125 mls/hr IV .Q8H [facility] Last Admin: 09/14/17 09:25 Dose: 125 mls/hr Medication Titration Document 09/14/17 09:25 AK (Rec: 09/14/17 09:26 AK [id number]) Titration Intake Container Volume 1,000 Elapsed Time 38h 28m Titration Dosing IV Rate 125 Increase/Decrease Started/Running Cumulative Dose Not Applicable Total Intake (Rx) 4,729.166 Volume Adjustment/Waste 0 Cefepime HCl 2 gm/ Sodium (Chloride) 100 mls @ 200 mls/hr IV Q12H [facility] Last Infusion: 09/14/17 10:15 Dose: 0 mls/hr Medication Titration Document 09/14/17 10:15 AK (Rec: 09/14/17 10:36 OR [id number]) Titration Intake Titration Intake 100 Cumulative Intake 100 Container Volume 0 Elapsed Time 3h 4m Titration Dosing IV Rate 0 Increase/Decrease Infused Cumulative Dose 0 Total Intake (Rx) 400 Volume Adjustment/Waste 0 Fluconazole (Diflucan 200 Mg/100 Ml) 100 mls @ 100 mls/hr IV Q24H [facility] Last Infusion: 09/13/17 13:10 Dose: 0 mls/hr Medication Titration Document 09/13/17 13:10 AK (Rec: 09/13/17 13:30 AK [id number]) Titration Intake Titration Intake 100 Cumulative Intake 100 Container Volume 0 Elapsed Time 1h 2m Titration Dosing IV Rate 0 Increase/Decrease Infused Cumulative Dose 200 Total Intake (Rx) 100 Volume Adjustment/Waste 0 Levalbuterol HCl (Xopenex) 1.25 mg INH RTQ4H PRN PRN Reason: Wheezing Levalbuterol HCl (Xopenex) 1.25 mg INH RTTID [facility] Last Admin: 09/14/17 09:03 Dose: 1.25 mg Magnesium Oxide (Mag Ox) 400 mg PO BID [facility] Last Admin: 09/14/17 08:36 Dose: 400 mg Polyethylene Glycol (Miralax) 17 gm PO DAILY [facility] Last Admin: 09/14/17 08:37 Dose: Not Given Non-Admin Reason: Patient Refused Sodium Chloride (Normal Saline Flush 0.9%) 10 ml IVP PRN PRN PRN Reason: NEEDED PER PROVIDER ORDERS Sodium Chloride (Normal Saline Flush 0.9%) 10 ml IVP 0100,0900,1700 [facility] Last Admin: 09/14/17 08:37 Dose: Tamsulosin HCl (Flomax) 0.4 mg PO 1730 [facility] Last Admin: 09/13/17 16:37 Dose: 0.4 mg Discontinued Medications Acetaminophen (Tylenol) 650 mg PO ONCE STA Stop: 09/12/17 09:28 Last Admin: 09/12/17 10:05 Dose: 650 mg Carvedilol (Coreg) 25 mg PO BID [facility] Sodium Chloride (Normal Saline 0.9%) 1,000 mls @ 0 mls/hr IV .Q0M ONE PRN Reason: Wide Open Stop: 09/12/17 09:28 Last Infusion: 09/12/17 11:30 Dose: 0 mls/hr Medication Titration Document 09/12/17 11:30 CP (Rec: 09/12/17 11:31 CP [id number]) Titration Intake Titration Intake 1,000 Cumulative Intake 1,000 Container Volume 0 Elapsed Time 1h 25m Titration Dosing IV Rate 0 Increase/Decrease Infused Cumulative Dose Not Applicable Total Intake (Rx) 1,000 Volume Adjustment/Waste 0 Cefepime HCl 2 gm/ Sodium (Chloride) 100 mls @ 200 mls/hr IV Q8H [facility] Stop: 09/12/17 10:46 Last Infusion: 09/12/17 11:04 Dose: 0 mls/hr Medication Titration Document 09/12/17 11:04 CP (Rec: 09/12/17 11:04 CP [id number]) Titration Intake Titration Intake 100 Cumulative Intake 100 Container Volume 0 Elapsed Time 37m Titration Dosing IV Rate 0 Increase/Decrease Infused Cumulative Dose 0 Total Intake (Rx) 100 Volume Adjustment/Waste 0 Metronidazole (Flagyl 500 Mg/100 Ml) 500 mg in 100 mls @ 100 mls/hr IV Q8H STA Stop: 09/12/17 11:16 Last Infusion: 09/12/17 12:07 Dose: 0 mls/hr Medication Titration Document 09/12/17 12:07 CP (Rec: 09/12/17 12:07 CP [id number]) Titration Intake Titration Intake 100 Cumulative Intake 100 Container Volume 0 Elapsed Time 1h 4m Titration Dosing IV Rate 0 Increase/Decrease Infused Cumulative Dose 500 Total Intake (Rx) 100 Volume Adjustment/Waste 0 Vancomycin HCl 2.5 gm/ Sodium (Chloride) 500 mls @ 250 mls/hr IV ONCE STA Stop: 09/12/17 12:16 Last Infusion: 09/12/17 15:47 Dose: 0 mls/hr Medication Titration Document 09/12/17 15:47 MELCHOR (Rec: 09/12/17 15:47 MELCHOR [id number]) Titration Intake Titration Intake 500 Cumulative Intake 500 Container Volume 0 Elapsed Time 3h 20m Titration Dosing IV Rate 0 Increase/Decrease Infused Cumulative Dose 0 Total Intake (Rx) 500 Volume Adjustment/Waste 0 Sodium Chloride (Normal Saline 0.9%) 2,000 mls @ 0 mls/hr IV .Q0M ONE PRN Reason: Wide Open Stop: 09/12/17 11:22 Last Infusion: 09/12/17 15:47 Dose: 0 mls/hr Medication Titration Document 09/12/17 15:47 MELCHOR (Rec: 09/12/17 15:47 MELCHOR [id number]) Titration Intake Titration Intake 2,000 Cumulative Intake 2,000 Container Volume 0 Elapsed Time 3h 38m Titration Dosing IV Rate 0 Increase/Decrease Infused Cumulative Dose Not Applicable Total Intake (Rx) 2,000 Volume Adjustment/Waste 0 Vancomycin HCl 100 gm/ Sodium (Chloride) 250 mls @ 167 mls/hr IV Q400H [facility] Iopamidol (Isovue-300) 100 ml IVP ONCE ONE Stop: 09/12/17 09:55 Last Admin: 09/12/17 09:55 Dose: 100 ml Potassium Chloride (K-Dur) 20 meq PO ONCE MIGUEL Stop: 09/14/17 09:30 Last Admin: 09/14/17 09:41 Dose: 20 meq Clinical Data Code Status Attempt Resuscitation Isolation and Precautions Standard precautions Does the pt have a hx of MRSA? Yes Telemetry Yes Primary Language Bengali Immunizations Tdap Current Influenza Immunization No: refuses Lugo Catheter Insertion/Continuation Critically ill/hemodynami Condition Serious Visit Reason CELLULITIS, SEPSIS Language Bengali Diet Start Label Display Regular Diet Sun Sep 12 Lunch 1 Vitals and Pain ED Vital Signs & Pain Assessment Start: 09/12/17 09:21 Freq: Status: Complete Protocol: Activity Type Activity Date Activity User E-Sign Co-Sign Detail Recorded Client Recorded Date Recorded By Edit Status 09/12/17 13:15 LAB Active=>Complete [id number] 09/12/17 13:15 LAB Triage ED Triage Start: 09/12/17 09:14 Freq: Status: Active Protocol: Activity Type Activity Date Activity User E-Sign Co-Sign Detail Recorded Client Recorded Date Recorded By Document 09/12/17 09:15 BG [id number] 09/12/17 09:21 BG 09/12/17 09:15 ED TRIAGE [Mode of Arrival] -Arrived By POV [Complaint Category] -Category Neuro [SUZANNE Triage Level] -Triage Level 2 Emergent [Onset] -Onset Last Night [Suicide Safety Screen] -Have you had thoughts of hurting No yourself in the past year [Results] -Suicide Risk Category Screening complete [Triage Vital Signs] -Temperature (36.5 C-37.5 C) 39.3 C -Temperature Source Temporal artery -Heart Rate (60-100) 138 -Blood Pressure (90/60-130/80) 140/94 -Mean Arterial Pressure 109 -Respiratory Rate (12-24) 26 -O2 Saturation (92-100) 96 -O2 Source Room air [Weight/Height] WEIGHT DEFAULTS TO KG. IF USING LBS, PUT "#" AFTER NUMBER. HEIGHT DEFAULTS TO FT . IF USING INCHES, PUT "IN" AFTER NUMBER . -WEIGHT IN KG - REQUIRED 125.1 kg -Weight Method Measured -HEIGHT IN FT - REQUIRED 6 ft -Body Mass Index 37.4 [Sepsis Indicators] -Sepsis New/Unexplained Change in Yes Mental Status -Sepsis Recent Fever Yes -Sepsis Infection Criteria Present None [Sepsis Screen] -Sepsis Screen No risk identified [Triage Comment] -Free Text Additional Description Pt presented to ER for change in mentation. Left side weakness. pt alert. Has some expressive aphasia. Pt has pmh of multiple cva's. Intake ED Past Medical/Surgical Hx Start: 09/12/17 09:21 Freq: Status: Active Protocol: Activity Type Activity Date Activity User E-Sign Co-Sign Detail Recorded Client Recorded Date Recorded By Document 09/12/17 09:24 [id number] 09/12/17 09:26 BG 09/12/17 09:24 ED Past Medical/Surgical Hx [ED Smoking - REQUIRED] -SMOKING - REQUIRED - DOES THE PT No SMOKE? [ED Smoking] -Smoking Status Never smoker [ED Past Medical Hx] -Does the pt have a hx of MRSA? Yes -Cardiovascular Hypertension High cholesterol Atrial fibrillation Valve disorder -Skin Other -Gastrointestinal Hiatal hernia -Urinary Benign prostate hypertrop Kidney stones [ED Past Surgical Hx] -Pt has past surgical hx? Yes [ED Past Surgical HX] -Other Surgeries hand surgery; umbilical hernia [Care Management Plan] -Care Management Plan on File? No [ED ETOH Use] -Does the pt drink ETOH? Yes [ED ETOH] -Frequency Occasional [ED Substance Abuse] -Does the pt have a substance abuse No problem? [ED Abuse Hx] -History of Abuse No [ED POLST] -Patient has POLST No Active Medications Acetaminophen (Tylenol) 650 mg PO Q4HR PRN PRN Reason: Pain or Fever > 38C (100.4F) Last Admin: 09/12/17 21:45 Dose: 650 mg Apixaban (Eliquis) 5 mg PO BID [facility] Last Admin: 09/14/17 08:35 Dose: 5 mg Carvedilol (Coreg) 25 mg PO BID [facility] Last Admin: 09/14/17 08:35 Dose: 25 mg Digoxin (Lanoxin) 250 mcg PO DAILY [facility] Last Admin: 09/14/17 08:36 Dose: 250 mcg Diltiazem HCl (Cardizem) 30 mg PO Q8HR [facility] Last Admin: 09/14/17 06:01 Dose: 30 mg Vancomycin HCl 1 gm/Vancomycin HCl 500 mg/ Sodium Chloride 500 mls @ 334 mls/ hr IV Q12H [facility] Last Infusion: 09/14/17 02:21 Dose: Infused Sodium Chloride (Normal Saline 0.9%) 1,000 mls @ 125 mls/hr IV .Q8H [facility] Last Admin: 09/14/17 09:25 Dose: 125 mls/hr Cefepime HCl 2 gm/ Sodium (Chloride) 100 mls @ 200 mls/hr IV Q12H [facility] Last Infusion: 09/14/17 10:15 Dose: Infused Fluconazole (Diflucan 200 Mg/100 Ml) 100 mls @ 100 mls/hr IV Q24H [facility] Last Infusion: 09/13/17 13:10 Dose: Infused Levalbuterol HCl (Xopenex) 1.25 mg INH RTQ4H PRN PRN Reason: Wheezing Levalbuterol HCl (Xopenex) 1.25 mg INH RTTID [facility] Last Admin: 09/14/17 09:03 Dose: 1.25 mg Magnesium Oxide (Mag Ox) 400 mg PO BID [facility] Last Admin: 09/14/17 08:36 Dose: 400 mg Polyethylene Glycol (Miralax) 17 gm PO DAILY [facility] Last Admin: 09/14/17 08:37 Dose: Not Given Sodium Chloride (Normal Saline Flush 0.9%) 10 ml IVP PRN PRN PRN Reason: NEEDED PER PROVIDER ORDERS Sodium Chloride (Normal Saline Flush 0.9%) 10 ml IVP 0100,0900,1700 [facility] Last Admin: 09/14/17 08:37 Dose: Not Given Tamsulosin HCl (Flomax) 0.4 mg PO 1730 [facility] Last Admin: 09/13/17 16:37 Dose: 0.4 mg Amlodipine Besylate 10 mg PO DAILY 07/27/12 Carvedilol 25 mg PO BID 08/09/13 Digoxin [Digox] 250 mcg PO DAILY 08/09/13 Finasteride 5 mg PO DAILY 08/09/13 Losartan Potassium 100 mg PO DAILY 08/09/13 Tamsulosin [Flomax] 0.4 mg PO 1730 08/09/13 Apixaban [Eliquis] 5 mg PO BID 04/17/16 Rosuvastatin Calcium 5 mg PO DAILY 09/12/17 Spironolactone 100 mg PO Q2D@0600 09/12/17 Objective - Vital Signs/Intake & Output Reviewed Vital Signs: Yes Vital Signs: Vital Signs x48h Temp Pulse Resp BP BP Pulse Ox 09/13/17 08:24 37.9 C H 95 18 124/79 97 09/13/17 05:56 123/76 09/13/17 05:00 37.5 C 94 18 123/76 95 09/13/17 04:00 37.1 C 90 18 118/71 95 Intake & Output: Intake & Output 09/10/17 09/11/17 09/12/17 09/13/17 23:59 23:59 23:59 23:59 Intake Total 3960 2529.167 Output Total 1250 1130 Balance 2710 1399.167 - Objective General Appearance: positive: No acute distress, Alert Eyes Bilateral: positive: Normal inspection, PERRL ENT: positive: ENT inspection nml, Pharynx nml, Pharyngeal erythema, Dry mucous membranes Neck: positive: Nml inspection, Thyroid nml, No JVD, Lymphadenopathy (R), Lymphadenopathy (L) Respiratory: positive: Chest non-tender, No respiratory distress, Other ( scattered crackles) Cardiovascular: positive: No gallop, Irregularly irregular, Systolic murmur, Decreased pulse(s) Peripheral Pulses: 1+ Radial (R), 1+ Radial (L) Abdomen: positive: Non-tender, Nml bowel sounds, Other (obese, soft) Back: positive: Nml inspection Skin: positive: No rash, Warm, Dry Extremities: positive: Non-tender, Full ROM, Pedal edema Neurologic/Psychiatric: positive: Oriented x3, CN's nml (2-12), Motor nml, Sensation nml, Weakness, Depressed mood/affect Reflexes: Bicep (R): 3+, Bicep (L): 3+ - Lab Results Fish Bones: 09/14/17 05:49 09/14/17 05:49 Other Labs: Lab Results x24hrs 09/12/17 09/12/17 09/12/17 Range/Units 16:14 16:14 16:14 PT (9.9-12.6) secs INR (0.8-1.2) APTT (24.9-33.3) secs Sodium 130 L (135-145) mmol/L Potassium 3.9 (3.5-5.0) mmol/L Chloride 98 L (101-111) mmol/L Carbon Dioxide 22 (21-32) mmol/L Anion Gap 10.0 (6-13) BUN 16 (6-20) mg/dL Creatinine 1.2 (0.6-1.2) mg/dL Estimated GFR (MDRD) 60 L (>89) Glucose 154 H (70-100) mg/dL Glycated Hemoglobin 6.3 H (4.6-6.2) % Estim Average Glucose 134 H (70-100) Lactic Acid (0.5-2.2) mmol/L Calcium 8.5 (8.5-10.3) mg/dL Magnesium (1.7-2.8) mg/dL GGT (8-55) IU/L Last Dose Date 09/12/2017 Last Dose Time 6AM Digoxin 0.8 ng/mL 09/12/17 09/12/17 09/12/17 Range/Units 16:14 16:14 16:14 PT 26.1 H (9.9-12.6) secs INR 2.4 H (0.8-1.2) APTT 32.6 (24.9-33.3) secs Sodium (135-145) mmol/L Potassium (3.5-5.0) mmol/L Chloride (101-111) mmol/L Carbon Dioxide (21-32) mmol/L Anion Gap (6-13) BUN (6-20) mg/dL Creatinine (0.6-1.2) mg/dL Estimated GFR (MDRD) (>89) Glucose (70-100) mg/dL Glycated Hemoglobin (4.6-6.2) % Estim Average Glucose (70-100) Lactic Acid 2.1 (0.5-2.2) mmol/L Calcium (8.5-10.3) mg/dL Magnesium (1.7-2.8) mg/dL GGT 42 (8-55) IU/L Last Dose Date Last Dose Time Digoxin ng/mL 09/12/17 09/12/17 Range/Units 16:14 12:39 PT (9.9-12.6) secs INR (0.8-1.2) APTT (24.9-33.3) secs Sodium (135-145) mmol/L Potassium (3.5-5.0) mmol/L Chloride (101-111) mmol/L Carbon Dioxide (21-32) mmol/L Anion Gap (6-13) BUN (6-20) mg/dL Creatinine (0.6-1.2) mg/dL Estimated GFR (MDRD) (>89) Glucose (70-100) mg/dL Glycated Hemoglobin (4.6-6.2) % Estim Average Glucose (70-100) Lactic Acid 2.1 (0.5-2.2) mmol/L Calcium (8.5-10.3) mg/dL Magnesium 1.6 L (1.7-2.8) mg/dL GGT (8-55) IU/L Last Dose Date Last Dose Time Digoxin ng/mL - Diagnostic Imaging Diagnostic Imaging Results: positive: Final report reviewed ABX Reporting Has patient been on IV antibiotics over the past 48 hours?: Yes Assessment/Plan - Problem List (1) Pneumonia Impression: The patient is found to have an elevated WBC count ~20 upon admission that improved today to 15.3. He continues to have a non-productive mild cough, body aches, fevers, chills, anorexia, and fatigue. He has not required supplemental oxygen, but imaging shows bilateral infiltrates. His urine is another source of infection, and the final cultures are pending, but the sample shows a UTI. Blood cultures are pending, but one preliminary sample shows +gram cocci in clusters. A sputum sample has not been obtained, so I have added nebulizer treatments. Plan: Continue septic work up, and await final cultures. Qualifiers: Laterality: bilateral Lung location: lower lobe of lung (2) Expressive aphasia Impression: The patient was found to have this starting prior to admission at home and expresses frustration with this. He admits to his previous CVAs when he had similar symptoms, but notes that overall, this just does not feel the same as these episodes occur during his fevers, then resolve. A head CT show no evidence of acute abnormalities, and stable multifocal areas of cortical encephalomalacia and dystrophic calcification at the right parietal lobe. A head MRI was delayed due to lack of staffing on the weekends, but is ordered for today. Upon exam, this symptom is improved. He continues to have fevers. Plan: Continue to monitor and await brain MRI. (3) Hematuria Impression: The patient admits to recent increased urinary urgency, frequency, and after arriving to the nursing floor is found to have hematuria. He admits to "urinating in the ED to give a sample and had burning". He has a history of BPH and states he typically gets up at least 3 times per night to urinate. He also has a history of kidney stones. He and his girlfriend state that he sees a urologist for his BPH. He is prescribed Flomax at home, which is continued here. The urine sample that was collected in the ED shows many bacteria, culture indicated, +proteins, + occult blood. Final cultures are still pending. Today, the patient states that his bleeding has stopped and it is much more comfortable to urinate as compared to when he was first admitted. Plan: Continue work up, await urine culture, and monitor for ongoing hematuria. (4) Fever Impression: The patient continues to have intermittent fevers overnight and today, with some relief when he takes tylenol. Ibuprofen was not added due to the bleeding potential. Plan: Continue to monitor and await culture results. Qualifiers: Encounter type: initial encounter (5) Chronic atrial fibrillation with rapid ventricular response Impression: The patient is under the care of Dr. Jose A Bobo, Cardiology with [facility]. Records have been requested and note his pericardial effusion has been noted on several echocariogram reports "small by echo 11/2015 & 04/2017". He is prescribed coreg, and digoxin at home, which is continued here. A dig serum blood level was obtained and is 0.8. Telemetry shows uncontrolled atrial fibrillation-RVR. This is likely a consequence of his acute illness. Echo results show an estimated EF of 60-65%, mild LV hypertrophy , moderate to severe RV enlargement, with RV septal wall flattening, consistent with RV pressure overload. Plan: Continue treat acute illness and continue home medications. (6) Bacteremia Impression: The patient fits into the sepsis guidelines and his preliminary blood culture results show gram positive cocci in clusters. Plan: Continue IV antibiotics using vancomycin and Cefepime. (7) Moderate to severe pulmonary hypertension Impression: Echo results show an RVSP at rest at 48 mmHg. The patient states that he "used to have sleep apnea". His current BMI is 37.5, he is found to have an obese, firm abdomen, and moderate BLE edema. He denies other lung histories, and states that he has never had pneumonia before this hospital stay. Also, very concerning is that the patient's right ventricle has a flattened septal wall, indicating this is not an acute diagnosis. Plan: Consider sprionolactone when the patient is stable and suggest a formal sleep study upon discharge. (8) UTI (urinary tract infection) Impression: The patient was noted to have hematuria, "a few drops when he would urinate", and burning. This is improved today. He does have an enlarged prostate that he sees a urologist for. Plan: Continue to treat for bactermia and await final urine culture results. Qualifiers: Urinary tract infection type: acute cystitis
[2017-09-13 08:54] LABS: BASOPHILS # (AUTO) 0.1 10^3/uL (0.0-0.1); BASOPHILS % (AUTO) 0.4 %; EOSINOPHILS % (AUTO) 0.1 %; HGB - HEMOGLOBIN 13.1 g/dL (14.0-18.0); LYMPHOCYTES # (AUTO) 0.9 10^3/uL (1.5-3.5); LYMPHOCYTES % (AUTO) 6.1 %; MEAN CORPUSCULAR HEMOGLOBIN 28.8 pg (27.0-31.0); MEAN CORPUSCULAR HGB CONC 33.4 g/dL (32.0-36.0); MEAN CORPUSCULAR VOLUME 86.3 fL (80.0-94.0); MEAN PLATELET VOLUME 8.2 fL (7.4-11.4); MONOCYTES # (AUTO) 0.8 10^3/uL (0.0-1.0); NEUTROPHILS # (AUTO) 13.5 10^3/uL (1.5-6.6); NEUTROPHILS % (AUTO) 88.4 %; PLT - PLATELET COUNT 130 10^3/uL (130-450); RED BLOOD COUNT 4.53 10^6/uL (4.70-6.10); RED CELL DISTRIBUTION WIDTH 14.5 % (12.0-15.0); WHITE BLOOD COUNT 15.3 x10^3/uL (4.8-10.8)
[2017-09-13] MEDS: DIGOXIN 125 MCG TABLET PO SCH (08:59)
[2017-09-13] MEDS: POLYETHYLENE GLYCOL 3350 17 GM PACKET PO SCH (09:00)
[2017-09-13] MEDS: CARVEDILOL 12.5 MG TABLET PO SCH ×2 (09:00→20:59)
[2017-09-13] MEDS: APIXABAN 2.5 MG TABLET PO SCH ×2 (09:00→20:59)
[2017-09-13] MEDS: MAGNESIUM OXIDE 400 MG TABLET PO SCH ×2 (09:00→20:59)
[2017-09-13 09:25] LABS: ALBUMIN 3.2 g/dL (3.2-5.5); ALBUMIN/GLOBULIN RATIO 0.9 (1.0-2.2); BILIRUBIN,TOTAL 1.4 mg/dL (0.2-1.0); CALCIUM 8.2 mg/dL (8.5-10.3); CREATININE 1.1 mg/dL (0.6-1.2); CRP - C-REACTIVE PROTEIN 25.1 mg/dL (0-1.0); TOTAL PROTEIN 6.7 g/dL (6.7-8.2)
[2017-09-13] MEDS: CEFEPIME 2 GM in SODIUM CHLORIDE 0.9% MINIBAG 100 ML IV SCH ×2 (10:04→20:59)
[2017-09-13] MEDS: FLUCONAZOLE 200 MG/100 ML 100 ML IV SCH (12:08)
[2017-09-13] MEDS ORDERED: LEVALBUTEROL 1.25 MG/3 ML NEB INH PRN (14:14)
[2017-09-13] MEDS: LEVALBUTEROL 1.25 MG/3 ML NEB INH SCH ×2 (16:23→20:40)
--- NOTE | 2017-09-13 16:30 | MRI Report ---
Procedure Date: 09/13/2017 Accession Number: [id number] / [id number] Procedure: MRI - Brain W/O CPT Code: FULL RESULT: EXAM: MRI BRAIN WITHOUT CONTRAST EXAM DATE: 09/13/2017 03:59 PM. CLINICAL HISTORY: Expressive aphasia, fever. COMPARISON: MRI of the brain without contrast 08/09/2013, CT scan of the head without contrast 09/12/[address] Angiogram of the head and neck 09/12/2017. TECHNIQUE: Multiplanar, multisequence T1-weighted and fluid-sensitive MR sequences of the brain were performed. Sequences optimized for routine evaluation. Other: None. IV Contrast: None. FINDINGS: Without the use of intravenous contrast, the evaluation for infection within the brain is somewhat limited. The diffusion-weighted images are normal. There is no evidence of acute or subacute cerebral infarction. The corpus callosum is of normal size and configuration. The pituitary and sella are normal. The craniocervical junction is normal. There are old lacunar infarctions demonstrated within the left cerebellar hemisphere. There is encephalomalacia in the superior medial right cerebellar hemisphere, right occipital lobe, and right parietal lobe. There is a small area of encephalomalacia of the left frontal lobe. The images are degraded by motion. There is an area of encephalomalacia in the mid caudate body. There is an old lacunar infarction of the right lentiform nucleus. There is an old lacunar infarction of the right thalamus and dorsum of the right lentiform nucleus. There are multiple punctate hyperintensities of the subcortical, deep and periventricular white matter consistent with a background of mild chronic small vessel ischemia. There is mild to moderate generalized and central volume loss. There are old blood products associated with the area of encephalomalacia within the dorsum of the medial superior aspect of the right cerebellar hemisphere. There are old blood products associated with the area of cerebral infarction in the right occipital lobe. There is mild mucosal thickening in the bilateral maxillary sinuses. There is minimal mucosal thickening in the ethmoid air cells. The optic nerves demonstrate symmetric signal intensity and size. The cerebral vascular flow voids are patent. The bilateral parotid spaces exhibit normal signal intensity. IMPRESSION: 1. There is no evidence of acute or subacute cerebral infarction. 2. There are old lacunar infarctions of the left cerebellar hemisphere, encephalomalacia of the medial right cerebellar hemisphere, right occipital lobe, right parietal lobe, and left frontal lobe. There is encephalomalacia in the mid left caudate body. 3. There is mixed mild to moderate generalized and central volume loss. 4. There is no evidence of brain mass.
[2017-09-13] MEDS: TAMSULOSIN 0.4 MG CAPSULE PO SCH (16:37)
[2017-09-14] MEDS: VANCOMYCIN INJ 1 GM, VANCOMYCIN INJ 500 MG in SODIUM CHLORIDE 0.9% 500 ML IV SCH (00:51)
[2017-09-14] MEDS: SODIUM CHLORIDE FLUSH 0.9% 10 ML SYRINGE IVP SCH ×4 (02:17→23:39)
[2017-09-14] MEDS: diltiaZEM 30 MG TABLET PO SCH ×3 (06:01→21:24)
[2017-09-14 06:27] LABS: BASOPHILS % (AUTO) 0.3 %; EOSINOPHILS % (AUTO) 0.2 %; HGB - HEMOGLOBIN 12.5 g/dL (14.0-18.0); LYMPHOCYTES # (AUTO) 1.1 10^3/uL (1.5-3.5); LYMPHOCYTES % (AUTO) 9.3 %; MEAN CORPUSCULAR HEMOGLOBIN 28.9 pg (27.0-31.0); MEAN CORPUSCULAR VOLUME 84.9 fL (80.0-94.0); MEAN PLATELET VOLUME 8.4 fL (7.4-11.4); MONOCYTES # (AUTO) 0.8 10^3/uL (0.0-1.0); MONOCYTES % (AUTO) 7.1 %; NEUTROPHILS # (AUTO) 9.7 10^3/uL (1.5-6.6); NEUTROPHILS % (AUTO) 83.1 %; PLT - PLATELET COUNT 127 10^3/uL (130-450); RED BLOOD COUNT 4.32 10^6/uL (4.70-6.10); RED CELL DISTRIBUTION WIDTH 14.4 % (12.0-15.0); WHITE BLOOD COUNT 11.7 x10^3/uL (4.8-10.8)
[2017-09-14 06:58] LABS: ALBUMIN 3.2 g/dL (3.2-5.5); ALBUMIN/GLOBULIN RATIO 0.9 (1.0-2.2); BILIRUBIN,TOTAL 1.1 mg/dL (0.2-1.0); CALCIUM 8.2 mg/dL (8.5-10.3); CREATININE 0.8 mg/dL (0.6-1.2); CRP - C-REACTIVE PROTEIN 19.9 mg/dL (0-1.0); TOTAL PROTEIN 6.7 g/dL (6.7-8.2)
[2017-09-14] MEDS ORDERED: POTASSIUM CHLORIDE 20 MEQ TABLET PO SCH (08:25)
[2017-09-14] MEDS: CARVEDILOL 12.5 MG TABLET PO SCH ×2 (08:35→21:24)
[2017-09-14] MEDS: APIXABAN 2.5 MG TABLET PO SCH ×2 (08:35→21:24)
[2017-09-14] MEDS: DIGOXIN 125 MCG TABLET PO SCH (08:36)
[2017-09-14] MEDS: MAGNESIUM OXIDE 400 MG TABLET PO SCH ×2 (08:36→21:24)
[2017-09-14] MEDS: POLYETHYLENE GLYCOL 3350 17 GM PACKET PO SCH (08:37)
[2017-09-14] MEDS: LEVALBUTEROL 1.25 MG/3 ML NEB INH SCH ×2 (09:03→15:31)
[2017-09-14] MEDS: SODIUM CHLORIDE 0.9% 1,000 ML IV SCH ×2 (09:25→16:21)
[2017-09-14] MEDS: CEFEPIME 2 GM in SODIUM CHLORIDE 0.9% MINIBAG 100 ML IV SCH ×2 (09:42→21:24)
[2017-09-14] MEDS: FLUCONAZOLE 200 MG/100 ML 100 ML IV SCH (11:21)
[2017-09-14 12:59] LABS: VANCOMYCIN,TROUGH 12.8 ug/mL (10.0-20.0)
[2017-09-14] MEDS: SODIUM CHLORIDE 0.9% IV SCH (13:34)
[2017-09-14] MEDS: VANCOMYCIN IV SCH (13:34)
[2017-09-14] MEDS: TAMSULOSIN 0.4 MG CAPSULE PO SCH (16:21)
--- NOTE | 2017-09-14 16:26 | PROVIDER PROGRESS NOTE ---
Subjective - Prog Note Date Prog Note Date: 09/14/17 - Subjective Pt reports feeling: Improved Subjective: pt report he feel ok, no complaints, no fever, chill, no chest pain. Pt report he had bid bowel movement today. Current Medications - Current Medications Current Medications: Active Medications Acetaminophen (Tylenol) 650 mg PO Q4HR PRN PRN Reason: Pain or Fever > 38C (100.4F) Last Admin: 09/12/17 21:45 Dose: 650 mg Apixaban (Eliquis) 5 mg PO BID [facility] Last Admin: 09/14/17 08:35 Dose: 5 mg Carvedilol (Coreg) 25 mg PO BID [facility] Last Admin: 09/14/17 08:35 Dose: 25 mg Digoxin (Lanoxin) 250 mcg PO DAILY [facility] Last Admin: 09/14/17 08:36 Dose: 250 mcg Diltiazem HCl (Cardizem) 30 mg PO Q8HR [facility] Last Admin: 09/14/17 13:34 Dose: 30 mg Cefepime HCl 2 gm/ Sodium (Chloride) 100 mls @ 200 mls/hr IV Q12H [facility] Last Infusion: 09/14/17 10:15 Dose: Infused Fluconazole (Diflucan 200 Mg/100 Ml) 100 mls @ 100 mls/hr IV Q24H [facility] Last Infusion: 09/14/17 12:25 Dose: Infused Vancomycin HCl 1 gm/Vancomycin HCl 750 mg/ Sodium Chloride 500 mls @ 250 mls/ hr IV Q12H [facility] Last Infusion: 09/14/17 15:51 Dose: Infused Sodium Chloride (Normal Saline 0.9%) 1,000 mls @ 75 mls/hr IV .[id number] [facility] Last Admin: 09/14/17 16:21 Dose: 75 mls/hr Levalbuterol HCl (Xopenex) 1.25 mg INH RTQ4H PRN PRN Reason: Wheezing Levalbuterol HCl (Xopenex) 1.25 mg INH RTTID [facility] Last Admin: 09/14/17 15:31 Dose: 1.25 mg Magnesium Oxide (Mag Ox) 400 mg PO BID [facility] Last Admin: 09/14/17 08:36 Dose: 400 mg Polyethylene Glycol (Miralax) 17 gm PO DAILY [facility] Last Admin: 09/14/17 08:37 Dose: Not Given Sodium Chloride (Normal Saline Flush 0.9%) 10 ml IVP PRN PRN PRN Reason: NEEDED PER PROVIDER ORDERS Sodium Chloride (Normal Saline Flush 0.9%) 10 ml IVP 0100,0900,1700 [facility] Last Admin: 09/14/17 16:21 Dose: Not Given Tamsulosin HCl (Flomax) 0.4 mg PO 1730 [facility] Last Admin: 09/14/17 16:21 Dose: 0.4 mg Amlodipine Besylate 10 mg PO DAILY 07/27/12 Carvedilol 25 mg PO BID 08/09/13 Digoxin [Digox] 250 mcg PO DAILY 08/09/13 Finasteride 5 mg PO DAILY 08/09/13 Losartan Potassium 100 mg PO DAILY 08/09/13 Tamsulosin [Flomax] 0.4 mg PO 1730 08/09/13 Apixaban [Eliquis] 5 mg PO BID 04/17/16 Rosuvastatin Calcium 5 mg PO DAILY 09/12/17 Spironolactone 100 mg PO Q2D@0600 09/12/17 Objective - Vital Signs/Intake & Output Reviewed Vital Signs: Yes Vital Signs: Vital Signs x48h Temp Pulse Pulse Resp BP BP Pulse Ox 09/14/17 15:51 37.1 C 75 16 135/78 H 96 09/14/17 15:31 94 14 09/14/17 13:34 135/86 H 09/14/17 12:54 37.5 C 105 H 20 135/86 H 94 09/14/17 09:08 103 H 16 Intake & Output: Intake & Output 09/11/17 09/12/17 09/13/17 09/14/17 23:59 23:59 23:59 23:59 Intake Total 3960 5829.166 4118 Output Total 1250 2230 2412 Balance 2710 3599.166 1706 - Objective General Appearance: positive: No acute distress, Alert. negative: Lethargic Eyes Bilateral: positive: Normal inspection, PERRL, No lid inflammation, Conjunctivae nml ENT: positive: ENT inspection nml, Pharynx nml, No signs of dehydration. negative: Purulent nasal drainage, Pharyngeal erythema, Oral lesions Neck: positive: Nml inspection, Thyroid nml, No JVD, Trachea midline. negative : Thyromegaly, Lymphadenopathy (R), Lymphadenopathy (L), Stiff neck, Swelling/ bruising, Tracheal deviation Respiratory: positive: Chest non-tender, No respiratory distress, Breath sounds nml. negative: Wheezes, Rales, Rhonchi Cardiovascular: positive: No murmur, No gallop, Irregularly irregular. negative : Extrasystoles, Tachycardia, Bradycardia, JVD present, Systolic murmur, Diastolic murmur Peripheral Pulses: 2+ Radial (R), 2+ Radial (L), 2+ Dorsalis pedis (R), 2+ Dorsalis pedis (L) Abdomen: positive: Non-tender, No organomegaly, Nml bowel sounds, No distention. negative: Tenderness, Guarding, Rebound Back: positive: Nml inspection. negative: CVA tenderness (R), CVA tenderness (L ) Skin: positive: Color nml, No rash, Warm, Dry. negative: Cyanosis, Diaphoresis , Pallor Extremities: positive: Non-tender, Full ROM, Nml appearance. negative: Calf tenderness, Joint swelling, Layo's sign/cords Neurologic/Psychiatric: positive: Oriented x3, Motor nml, Sensation nml, Mood/ affect nml. negative: Weakness, Sensory loss, Facial droop, Slurred/abnml speech, Depressed mood/affect - Lab Results Fish Bones: 09/14/17 05:49 09/14/17 05:49 Other Labs: Lab Results x24hrs 09/14/17 09/14/17 09/14/17 Range/Units 12:44 05:49 05:49 WBC 11.7 H (4.8-10.8) x10^3/uL RBC 4.32 L (4.70-6.10) 10^6/uL Hgb 12.5 L (14.0-18.0) g/dL Hct 36.7 L (42.0-52.0) % MCV 84.9 (80.0-94.0) fL MCH 28.9 (27.0-31.0) pg MCHC 34.0 (32.0-36.0) g/dL RDW 14.4 (12.0-15.0) % Plt Count 127 L (130-450) 10^3/uL MPV 8.4 (7.4-11.4) fL Neut # (Auto) 9.7 H (1.5-6.6) 10^3/uL Lymph # (Auto) 1.1 L (1.5-3.5) 10^3/uL [place] # (Auto) 0.8 (0.0-1.0) 10^3/uL Eos # (Auto) 0.0 (0.0-0.7) 10^3/uL Baso # (Auto) 0.0 (0.0-0.1) 10^3/uL Absolute Nucleated RBC 0.00 x10^3/uL Nucleated RBC % 0.0 /100WBC ESR (0-20) mm/Hr Sodium 133 L (135-145) mmol/L Potassium 3.4 L (3.5-5.0) mmol/L Chloride 103 (101-111) mmol/L Carbon Dioxide 22 (21-32) mmol/L Anion Gap 8.0 (6-13) BUN 13 (6-20) mg/dL Creatinine 0.8 (0.6-1.2) mg/dL Estimated GFR (MDRD) 96 (>89) Glucose 133 H (70-100) mg/dL Calcium 8.2 L (8.5-10.3) mg/dL Total Bilirubin 1.1 H (0.2-1.0) mg/dL AST 27 (10-42) IU/L ALT 28 (10-60) IU/L Alkaline Phosphatase 50 (42-121) IU/L C-Reactive Protein 19.9 H (0-1.0) mg/dL Total Protein 6.7 (6.7-8.2) g/dL Albumin 3.2 (3.2-5.5) g/dL Globulin 3.5 (2.1-4.2) g/dL Albumin/Globulin Ratio 0.9 L (1.0-2.2) Last Dose Date UNK Last Dose Time UNK Vancomycin Trough 12.8 (10.0-20.0) ug/mL 09/14/17 Range/Units 05:49 WBC (4.8-10.8) x10^3/uL RBC (4.70-6.10) 10^6/uL Hgb (14.0-18.0) g/dL Hct (42.0-52.0) % MCV (80.0-94.0) fL MCH (27.0-31.0) pg MCHC (32.0-36.0) g/dL RDW (12.0-15.0) % Plt Count (130-450) 10^3/uL MPV (7.4-11.4) fL Neut # (Auto) (1.5-6.6) 10^3/uL Lymph # (Auto) (1.5-3.5) 10^3/uL [place] # (Auto) (0.0-1.0) 10^3/uL Eos # (Auto) (0.0-0.7) 10^3/uL Baso # (Auto) (0.0-0.1) 10^3/uL Absolute Nucleated RBC x10^3/uL Nucleated RBC % /100WBC ESR 37 H (0-20) mm/Hr Sodium (135-145) mmol/L Potassium (3.5-5.0) mmol/L Chloride (101-111) mmol/L Carbon Dioxide (21-32) mmol/L Anion Gap (6-13) BUN (6-20) mg/dL Creatinine (0.6-1.2) mg/dL Estimated GFR (MDRD) (>89) Glucose (70-100) mg/dL Calcium (8.5-10.3) mg/dL Total Bilirubin (0.2-1.0) mg/dL AST (10-42) IU/L ALT (10-60) IU/L Alkaline Phosphatase (42-121) IU/L C-Reactive Protein (0-1.0) mg/dL Total Protein (6.7-8.2) g/dL Albumin (3.2-5.5) g/dL Globulin (2.1-4.2) g/dL Albumin/Globulin Ratio (1.0-2.2) Last Dose Date Last Dose Time Vancomycin Trough (10.0-20.0) ug/mL ABX Reporting Has patient been on IV antibiotics over the past 48 hours?: Yes Assessment/Plan - Problem List (1) Pneumonia Impression: (1) Pneumonia Impression: 09/14 pt's lung is good, 96% sats on room air. Pt still has slight elevated WBC 11.9 continue antibiotics The patient is found to have an elevated WBC count ~20 upon admission that improved today to 15.3. He continues to have a non-productive mild cough, body aches, fevers, chills, anorexia, and fatigue. He has not required supplemental oxygen, but imaging shows bilateral infiltrates. His urine is another source of infection, and the final cultures are pending, but the sample shows a UTI. Blood cultures are pending, but one preliminary sample shows +gram cocci in clusters. A sputum sample has not been obtained, so I have added nebulizer treatments. Plan: Continue septic work up, and await final cultures. (2) Expressive aphasia Impression: resolved. MRI, CTA of neck and head, ECHO reveals unremarkable The patient was found to have this starting prior to admission at home and expresses frustration with this. He admits to his previous CVAs when he had similar symptoms, but notes that overall, this just does not feel the same as these episodes occur during his fevers, then resolve. A head CT show no evidence of acute abnormalities, and stable multifocal areas of cortical encephalomalacia and dystrophic calcification at the right parietal lobe. A head MRI was delayed due to lack of staffing on the weekends, but is ordered for today. Upon exam, this symptom is improved. He continues to have fevers. Plan: Continue to monitor and await brain MRI. (3) Hematuria Impression: nurse pt had clear urine, no hematuria more. pt report he did not hematuria any more as well, No dysuria as well. will US of kidney if needed. The patient admits to recent increased urinary urgency, frequency, and after arriving to the nursing floor is found to have hematuria. He admits to "urinating in the ED to give a sample and had burning". He has a history of BPH and states he typically gets up at least 3 times per night to urinate. He also has a history of kidney stones. He and his girlfriend state that he sees a urologist for his BPH. He is prescribed Flomax at home, which is continued here. The urine sample that was collected in the ED shows many bacteria, culture indicated, +proteins, + occult blood. Final cultures are still pending. Today, the patient states that his bleeding has stopped and it is much more comfortable to urinate as compared to when he was first admitted. Plan: Continue work up, await urine culture, and monitor for ongoing hematuria. (4) Fever Impression: resolved The patient continues to have intermittent fevers overnight and today, with some relief when he takes tylenol. Ibuprofen was not added due to the bleeding potential. Plan: Continue to monitor and await culture results. (5) Chronic atrial fibrillation with rapid ventricular response Impression: resolved. HR is 75, controlled continue Eliquis The patient is under the care of Dr. Jose A Bobo, Cardiology with [facility]. Records have been requested and note his pericardial effusion has been noted on several echocariogram reports "small by echo 11/2015 & 04/2017". He is prescribed coreg, and digoxin at home, which is continued here. A dig serum blood level was obtained and is 0.8. Telemetry shows uncontrolled atrial fibrillation-RVR. This is likely a consequence of his acute illness. Echo results show an estimated EF of 60-65%, mild LV hypertrophy , moderate to severe RV enlargement, with RV septal wall flattening, consistent with RV pressure overload. Plan: Continue treat acute illness and continue home medications. (6) Bacteremia Impression: 09/14nblood culture shows strep B positive continue Cefepime, and vancomycin now, pt had fever before The patient fits into the sepsis guidelines and his preliminary blood culture results show gram positive cocci in clusters. Plan: Continue IV antibiotics using vancomycin and Cefepime. (7) Moderate to severe pulmonary hypertension Impression: Echo results show an RVSP at rest at 48 mmHg. The patient states that he "used to have sleep apnea". His current BMI is 37.5, he is found to have an obese, firm abdomen, and moderate BLE edema. He denies other lung histories, and states that he has never had pneumonia before this hospital stay. Also, very concerning is that the patient's right ventricle has a flattened septal wall, indicating this is not an acute diagnosis. Plan: Consider sprionolactone when the patient is stable and suggest a formal sleep study upon discharge. Qualifiers: Laterality: bilateral Lung location: lower lobe of lung
[2017-09-15] MEDS: SODIUM CHLORIDE 0.9% IV SCH ×2 (00:42→13:19)
[2017-09-15] MEDS: VANCOMYCIN IV SCH ×2 (00:42→13:19)
[2017-09-15 05:34] LABS: BASOPHILS % (AUTO) 0.4 %; EOSINOPHILS # (AUTO) 0.1 10^3/uL (0.0-0.7); EOSINOPHILS % (AUTO) 0.8 %; HGB - HEMOGLOBIN 12.8 g/dL (14.0-18.0); LYMPHOCYTES # (AUTO) 1.2 10^3/uL (1.5-3.5); LYMPHOCYTES % (AUTO) 15.2 %; MEAN CORPUSCULAR HEMOGLOBIN 28.6 pg (27.0-31.0); MEAN CORPUSCULAR HGB CONC 33.4 g/dL (32.0-36.0); MEAN CORPUSCULAR VOLUME 85.7 fL (80.0-94.0); MEAN PLATELET VOLUME 8.4 fL (7.4-11.4); MONOCYTES # (AUTO) 0.8 10^3/uL (0.0-1.0); NEUTROPHILS # (AUTO) 5.7 10^3/uL (1.5-6.6); NEUTROPHILS % (AUTO) 73.6 %; PLT - PLATELET COUNT 154 10^3/uL (130-450); RED BLOOD COUNT 4.48 10^6/uL (4.70-6.10); RED CELL DISTRIBUTION WIDTH 14.5 % (12.0-15.0); WHITE BLOOD COUNT 7.8 x10^3/uL (4.8-10.8)
[2017-09-15] MEDS: diltiaZEM 30 MG TABLET PO SCH ×2 (05:43→13:19)
[2017-09-15 05:49] LABS: ALBUMIN 3.3 g/dL (3.2-5.5); ALBUMIN/GLOBULIN RATIO 0.9 (1.0-2.2); BILIRUBIN,TOTAL 1.2 mg/dL (0.2-1.0); CALCIUM 8.3 mg/dL (8.5-10.3); CREATININE 0.8 mg/dL (0.6-1.2); CRP - C-REACTIVE PROTEIN 16.7 mg/dL (0-1.0); TOTAL PROTEIN 6.8 g/dL (6.7-8.2)
[2017-09-15] MEDS ORDERED: POTASSIUM CHLORIDE 20 MEQ TABLET PO ONE (07:55)
[2017-09-15] MEDS: SODIUM CHLORIDE 0.9% 1,000 ML IV SCH (07:57)
[2017-09-15] MEDS ORDERED: POTASSIUM CHLORIDE 20 MEQ TABLET PO SCH (08:00)
[2017-09-15] MEDS: CARVEDILOL 12.5 MG TABLET PO SCH (09:00)
[2017-09-15] MEDS: POLYETHYLENE GLYCOL 3350 17 GM PACKET PO SCH (09:01)
[2017-09-15] MEDS: SODIUM CHLORIDE FLUSH 0.9% 10 ML SYRINGE IVP SCH (09:01)
[2017-09-15] MEDS: DIGOXIN 125 MCG TABLET PO SCH (09:01)
[2017-09-15] MEDS: APIXABAN 2.5 MG TABLET PO SCH (09:01)
[2017-09-15] MEDS: MAGNESIUM OXIDE 400 MG TABLET PO SCH (09:01)
[2017-09-15] MEDS: CEFEPIME 2 GM in SODIUM CHLORIDE 0.9% MINIBAG 100 ML IV SCH (09:51)
[2017-09-15] MEDS: FLUCONAZOLE 200 MG/100 ML 100 ML IV SCH (10:44)
--- NOTE | 2017-09-15 12:59 | Discharge Plan ---
Discharge Plan Disposition: Home, Self Care Condition: Poor Prescriptions: Amox/Clav 875/125 [Augmentin] 1 each PO Q12H #14 tablet diltiaZEM CD [Cardizem Cd] 120 mg PO DAILY #10 capsule Diet: Regular Activity Restrictions: Activity as Tolerated Shower Restrictions: No (fall precaution) Instruction Topics: Amoxicillin Clavulanic Acid tablets, Diltiazem tablets Additional Instructions or Follow Up instructions: You may follow up your PCP in one week. Should your symptoms return or worse, you may present ER or call 911 for help No Smoking: If you smoke, Please STOP! Call for help. Follow-up with: Adrian Olivo MD [Primary Care Provider] -
--- NOTE | 2017-09-15 13:03 | DISCHARGE SUMMARY ---
Discharge Summary Discharge Date: 09/15/17 Discharging Provider: TA Primary Care Provider: DR. Olivo Condition at Discharge: Poor Discharge Disposition: 01 Home, Self Care Discharge Facility Name: home - DIAGNOSES Admission Diagnoses: (1) Pneumonia (2) Expressive aphasia (3) Hematuria (4) Fever (5) Chronic atrial fibrillation with rapid ventricular response (6) Moderate to severe pulmonary hypertension (7) Sepsis Discharge Diagnoses with Status of Each Condition: (1) Pneumonia WBC is normal. No fever, chill, cough. 94% sats on room air. continue antibiotics course (2) Expressive aphasia resolved. MRI of head, CTA of head and neck without acute significant finding (3) Hematuria nurse report resolved. discuss with pt and his , continue PCP monitor (4) Fever resolved (5) Chronic atrial fibrillation with rapid ventricular response HR is controlled. pt is prescribed Cardizem for continue to control HR, follow up educational technologist (6) Bacteremia pt was found to be positive for strep B. after treatment, pt has no fever for three days, WBC is normal. following sensitive study, antibiotics is prescribe to pt for continuing of treatment. (7) Moderate to severe pulmonary hypertension discuss with pt, follow up PCP (8) sepsis resolved. after treatment, no fever for three days, WBC is normal, lactic acid is normal. continue antibiotics course. - HPI History of Present Illness: refer from Russ Martell's HPI as the following: Trey Batista is an ill appearing 71-year old male with a past medical history of hypertension, hyperlipidemia, atrial fibrillation, prior CVAs with ataxia as a residual, murmur, obesity, hiatal hernia, BPH, kidney stones. He presented to the ED today with a primary complaint of fever, chills and increased confusion. His symptoms started yesterday and included slurred speech, altered mental status, fatigue, body aches, fever, chills, nausea without vomiting, and anorexia. He denies recent falls, chest pain or pressure, a productive cough, vomiting, changes in bowel habits, recent travel, sick contacts, or aspiration events. He is accompanied by his girlfriend, Jamaal who helped with some of the H /P details. She states that 2 days ago he was outside working, moving dirt for their garden and in his normal state of health. He had been to his PCP in the past few weeks for a rash that developed on his back and for LLE cellulitis. He was given oral antibiotics out patient. He will be admitted for pneumonia and sepsis as inpatient. - ALLERGIES Allergies/Adverse Reactions: Allergies Allergy/AdvReac Type Severity Reaction Status Date / Time bee venom protein (honey bee) Allergy Anaphylaxis Verified 09/12/17 09:21 - MEDICATIONS Home Medications: Ambulatory Orders Medication Instructions Recorded Confirmed Amlodipine Besylate 10 mg PO DAILY 07/27/12 09/12/17 Carvedilol 25 mg PO BID 08/09/13 09/12/17 Digoxin [Digox] 250 mcg PO DAILY 08/09/13 09/12/17 Finasteride 5 mg PO DAILY 08/09/13 09/12/17 Losartan Potassium 100 mg PO DAILY 08/09/13 09/12/17 Tamsulosin [Flomax] 0.4 mg PO 1730 08/09/13 09/12/17 Apixaban [Eliquis] 5 mg PO BID 04/17/16 09/12/17 Rosuvastatin Calcium 5 mg PO DAILY 09/12/17 09/12/17 Spironolactone 100 mg PO Q2D@0600 09/12/17 09/12/17 Amox/Clav 875/125 [Augmentin] 1 each PO Q12H #14 tablet 09/15/17 diltiaZEM CD [Cardizem Cd] 120 mg PO DAILY #10 capsule 09/15/17 - PHYSICAL EXAM AT DISCHARGE General Appearance: positive: No acute distress, Alert. negative: Lethargic Eyes Bilateral: positive: Normal inspection, PERRL, No lid inflammation, Conjunctivae nml ENT: positive: ENT inspection nml, Pharynx nml, No signs of dehydration. negative: Purulent nasal drainage, Pharyngeal erythema, Oral lesions Neck: positive: Nml inspection, Thyroid nml, No JVD, Trachea midline. negative : Thyromegaly, Lymphadenopathy (R), Lymphadenopathy (L), Stiff neck, Swelling/ bruising, Tracheal deviation Respiratory: positive: Chest non-tender, No respiratory distress, Breath sounds nml. negative: Wheezes, Rales, Rhonchi Cardiovascular: positive: Regular rate & rhythm, No murmur, No gallop. negative : Irregularly irregular, Extrasystoles, Tachycardia, Bradycardia, JVD present, Systolic murmur, Diastolic murmur Peripheral Pulses: positive: 2+ Abdomen: positive: Non-tender, No organomegaly, Nml bowel sounds, No distention. negative: Tenderness, Guarding, Rebound Back: positive: Nml inspection. negative: CVA tenderness (R), CVA tenderness (L ) Skin: positive: Color nml, No rash, Warm, Dry. negative: Cyanosis, Diaphoresis , Pallor Extremities: positive: Non-tender, Full ROM, Nml appearance. negative: Calf tenderness, Joint swelling, Layo's sign/cords Neurologic/Psychiatric: positive: Oriented x3, Motor nml, Sensation nml, Mood/ affect nml. negative: Weakness, Sensory loss, Facial droop, Slurred/abnml speech, Depressed mood/affect - LABS Result Diagrams: 09/15/17 04:55 09/15/17 04:55 - FOLLOW UP Follow Up: You may follow up your PCP in one week. Should your symptoms return or worse, you may present ER or call 911 for help - TIME SPENT Time Spent in Discharge (Minutes): 50
[2017-09-15 13:15] VITALS: BP 150/97
== END 2017-09-15 14:45 | disposition home or self-care (01) | DRG 871 ==
LOC: EDUNIT# → ED 09:10 → MS2 11:47
PROVIDERS: ADMIT Nurse Practitioner; ATTEND Nurse Practitioner Gerontology
DX: A40.1 Sepsis due to streptococcus, group B (principal); J18.9 Pneumonia, unspecified organism; N30.01 Acute cystitis with hematuria; R47.01 Aphasia; I48.2 Chronic atrial fibrillation; Z79.01 Long term (current) use of anticoagulants; I69.993 Ataxia following unspecified cerebrovascular disease; E66.9 Obesity, unspecified; I27.20 Pulmonary hypertension, unspecified; N40.1 Benign prostatic hyperplasia with lower urinary tract symptoms; R35.0 Frequency of micturition; R39.15 Urgency of urination; R31.9 Hematuria, unspecified; I48.91 Unspecified atrial fibrillation
CPT/HCPCS: 36415; 70450; 70496; 70498; 70551; 71046; 80048; 80053; 80162; 80202; 81001; 81003; 82977; 83036; 83605; 83690; 83735; 84443; 84484; 85025; 85610; 85651; 85730; 86140; 87040; 87077; 87086; 87181; 93005; 93306; 94640; 96365; 96367; 99284; 99285

== ENCOUNTER 2017-10-15 08:28 | Outpatient (CLI) | payer MEDICARE, OTHER ==
[2017-10-15 09:03] LABS: HB2 TOTAL 14.8 g/dL; HEMOGLOBIN A1C 0.74 g/dL; HEMOGLOBIN A1C % 6.7 % (4.6-6.2)
== END 2017-10-15 08:29 | disposition home or self-care (01) ==
LOC: LAB 08:28
PROVIDERS: ATTEND Internal Medicine
DX: E88.81 Metabolic syndrome and other insulin resistance (principal); E11.65 Type 2 diabetes mellitus with hyperglycemia
CPT/HCPCS: 36415; 82947; 83036

== ENCOUNTER 2018-02-23 09:14 | Outpatient (CLI) | payer MEDICARE, OTHER ==
[2018-02-23 10:16] LABS: HEMOGLOBIN A1C 0.73 g/dL; HEMOGLOBIN A1C % 6.3 % (4.6-6.2)
== END 2018-02-23 09:15 | disposition home or self-care (01) ==
LOC: LAB 09:14
PROVIDERS: ATTEND Internal Medicine
DX: E88.81 Metabolic syndrome and other insulin resistance (principal); E11.65 Type 2 diabetes mellitus with hyperglycemia
CPT/HCPCS: 36415; 83036

== ENCOUNTER 2018-07-22 10:03 | Outpatient (CLI) | payer MEDICARE, OTHER ==
[2018-07-22 17:39] LABS: HGB - HEMOGLOBIN 14.8 g/dL (14.0-18.0); MEAN CORPUSCULAR HEMOGLOBIN 28.4 pg (27.0-31.0); MEAN CORPUSCULAR HGB CONC 33.2 g/dL (32.0-36.0); MEAN CORPUSCULAR VOLUME 85.6 fL (80.0-94.0); MEAN PLATELET VOLUME 8.7 fL (7.4-11.4); RED BLOOD COUNT 5.2 10^6/uL (4.70-6.10); RED CELL DISTRIBUTION WIDTH 14.4 % (12.0-15.0); WHITE BLOOD COUNT 5.3 x10^3/uL (4.8-10.8)
[2018-07-22 18:09] LABS: ALBUMIN 4.2 g/dL (3.2-5.5); ALBUMIN/GLOBULIN RATIO 1.2 (1.0-2.2); ALKALINE PHOSPHATASE 50 IU/L (42-121); ALT ALANINE AMINOTRANSFERASE 35 IU/L (10-60); AST ASPARTATE AMINOTRANSFERASE 36 IU/L (10-42); BILIRUBIN,TOTAL 0.9 mg/dL (0.2-1.0); BUN - BLOOD UREA NITROGEN 19 mg/dL (6-20); CALCIUM 9.4 mg/dL (8.5-10.3); CARBON DIOXIDE - CO2 24 mmol/L (21-32); CHLORIDE 104 mmol/L (101-111); CHOL/HDL RATIO 4.2 (<5.0); CHOLESTEROL 131 mg/dL; GFR - MDRD 74 (>89); GLUCOSE 123 mg/dL (70-100); HDL CHOLESTEROL 31 mg/dL; LDL CHOLESTEROL,CALCULATED 67 mg/dL; LDL/HDL RATIO 2.2 (<3.6); SODIUM 136 mmol/L (135-145); TOTAL PROTEIN 7.7 g/dL (6.7-8.2); VLDL CHOLESTEROL 33 mg/dL
[2018-07-22 19:22] LABS: HB2 TOTAL 15.8 g/dL; HEMOGLOBIN A1C 0.73 g/dL; HEMOGLOBIN A1C % 6.4 % (4.6-6.2)
== END 2018-07-22 10:04 | disposition home or self-care (01) ==
LOC: LAB.F 10:03
PROVIDERS: ATTEND Internal Medicine
DX: E78.5 Hyperlipidemia, unspecified (principal); R73.02 Impaired glucose tolerance (oral); I48.91 Unspecified atrial fibrillation
CPT/HCPCS: 36415; 80053; 80061; 81599; 83036; 83721; 85027

== ENCOUNTER 2018-10-09 08:43 | Outpatient (CLI) | payer MEDICARE, OTHER | END 2018-10-09 08:44 | disposition home or self-care (01) | LOC: LAB 08:43 | PROVIDERS: ATTEND Urology | DX: R97.20 Elevated prostate specific antigen [PSA] (principal); N40.1 Benign prostatic hyperplasia with lower urinary tract symptoms | CPT/HCPCS: 36415; 84153 ==

== ENCOUNTER 2019-06-14 10:17 | Outpatient (CLI) | payer MEDICARE, OTHER ==
[2019-06-14 10:50] LABS: ALT ALANINE AMINOTRANSFERASE 33 IU/L (10-60); AST ASPARTATE AMINOTRANSFERASE 26 IU/L (10-42); BUN - BLOOD UREA NITROGEN 14 mg/dL (6-20); CARBON DIOXIDE - CO2 32 mmol/L (21-32); CHLORIDE 100 mmol/L (101-111); CHOLESTEROL 120 mg/dL; HDL CHOLESTEROL 30 mg/dL; LDL CHOLESTEROL,CALCULATED 66 mg/dL; LDL/HDL RATIO 2.2 (<3.6); SODIUM 136 mmol/L (135-145); VLDL CHOLESTEROL 24 mg/dL
== END 2019-06-14 10:18 | disposition home or self-care (01) ==
LOC: LAB 10:17
PROVIDERS: ATTEND Internal Medicine Cardiovascular Disease
DX: E78.5 Hyperlipidemia, unspecified (principal); I15.1 Hypertension secondary to other renal disorders; E26.09 Other primary hyperaldosteronism
CPT/HCPCS: 36415; 80051; 80061; 81599; 82172; 82565; 83721; 84450; 84460; 84520

== ENCOUNTER 2019-10-02 08:08 | Outpatient (CLI) | payer MEDICARE, OTHER | END 2019-10-02 08:09 | disposition home or self-care (01) | LOC: LAB 08:08 | PROVIDERS: ATTEND Urology | DX: N40.1 Benign prostatic hyperplasia with lower urinary tract symptoms (principal) | CPT/HCPCS: 36415; 84153 ==

== ENCOUNTER 2020-06-10 07:24 | Outpatient (CLI) | payer MEDICARE, OTHER ==
[2020-06-10 07:50] LABS: BASOPHILS % (AUTO) 0.6 %; EOSINOPHILS # (AUTO) 0.1 10^3/uL (0.0-0.7); EOSINOPHILS % (AUTO) 1.4 %; HCT - HEMATOCRIT 41.7 % (42.0-52.0); LYMPHOCYTES # (AUTO) 1.9 10^3/uL (1.5-3.5); LYMPHOCYTES % (AUTO) 29.9 %; MEAN CORPUSCULAR HGB CONC 33.6 g/dL (32.0-36.0); MEAN CORPUSCULAR VOLUME 86.3 fL (80.0-94.0); MEAN PLATELET VOLUME 9.5 fL (7.4-11.4); MONOCYTES # (AUTO) 0.6 10^3/uL (0.0-1.0); MONOCYTES % (AUTO) 10.2 %; NEUTROPHILS # (AUTO) 3.6 10^3/uL (1.5-6.6); NEUTROPHILS % (AUTO) 57.7 %; PLT - PLATELET COUNT 178 10^3/uL (130-450); RED BLOOD COUNT 4.83 10^6/uL (4.70-6.10); RED CELL DISTRIBUTION WIDTH 14.2 % (12.0-15.0); WHITE BLOOD COUNT 6.3 x10^3/uL (4.8-10.8)
[2020-06-10 08:12] LABS: ALBUMIN 4.2 g/dL (3.2-5.5); ALBUMIN/GLOBULIN RATIO 1.3 (1.0-2.2); ALKALINE PHOSPHATASE 50 IU/L (42-121); ALT ALANINE AMINOTRANSFERASE 33 IU/L (10-60); AST ASPARTATE AMINOTRANSFERASE 28 IU/L (10-42); BUN - BLOOD UREA NITROGEN 19 mg/dL (6-20); CALCIUM 9.8 mg/dL (8.5-10.3); CARBON DIOXIDE - CO2 28 mmol/L (21-32); CHLORIDE 101 mmol/L (101-111); CHOL/HDL RATIO 3.7 (<5.0); CHOLESTEROL 119 mg/dL; GFR - MDRD 73 (>89); GLUCOSE 147 mg/dL (70-100); HDL CHOLESTEROL 32 mg/dL; LDL CHOLESTEROL,CALCULATED 63 mg/dL; POTASSIUM 3.9 mmol/L (3.5-5.0); SODIUM 139 mmol/L (135-145); TOTAL PROTEIN 7.5 g/dL (6.7-8.2); TRIGLYCERIDES 122 mg/dL; VLDL CHOLESTEROL 24 mg/dL
[2020-06-10 12:11] LABS: ESTIMATED AVERAGE GLUCOSE 143 mg/dL (70-100); HEMOGLOBIN A1c% 6.6 % (4.27-6.07)
== END 2020-06-10 07:25 | disposition home or self-care (01) ==
LOC: LAB 07:24
PROVIDERS: ATTEND Internal Medicine
DX: I10 Essential (primary) hypertension (principal); M15.9 Polyosteoarthritis, unspecified; R73.02 Impaired glucose tolerance (oral); Z12.5 Encounter for screening for malignant neoplasm of prostate; I48.91 Unspecified atrial fibrillation
CPT/HCPCS: 36415; 80053; 80061; 82728; 83036; 85025; G0103; 83721; 84153

== ENCOUNTER 2020-09-02 07:21 | Outpatient (CLI) | payer MEDICARE, OTHER ==
[2020-09-02 11:26] LABS: ESTIMATED AVERAGE GLUCOSE 137 mg/dL (70-100); HEMOGLOBIN A1c% 6.4 % (4.27-6.07)
== END 2020-09-02 07:22 | disposition home or self-care (01) ==
LOC: LAB 07:21
PROVIDERS: ATTEND Internal Medicine
DX: E11.9 Type 2 diabetes mellitus without complications (principal)
CPT/HCPCS: 36415; 83036

== ENCOUNTER 2020-12-01 13:30 | Outpatient (CLI) | payer MEDICARE, OTHER ==
[2020-12-01 13:45] LABS: BASOPHILS % (AUTO) 0.6 %; EOSINOPHILS # (AUTO) 0.1 10^3/uL (0.0-0.7); EOSINOPHILS % (AUTO) 1.3 %; HCT - HEMATOCRIT 43.1 % (42.0-52.0); HGB - HEMOGLOBIN 14.3 g/dL (14.0-18.0); LYMPHOCYTES # (AUTO) 2.1 10^3/uL (1.5-3.5); LYMPHOCYTES % (AUTO) 33.6 %; MEAN CORPUSCULAR HEMOGLOBIN 28.5 pg (27.0-31.0); MEAN CORPUSCULAR HGB CONC 33.2 g/dL (32.0-36.0); MEAN PLATELET VOLUME 9.9 fL (7.4-11.4); MONOCYTES # (AUTO) 0.6 10^3/uL (0.0-1.0); MONOCYTES % (AUTO) 9.5 %; NEUTROPHILS # (AUTO) 3.4 10^3/uL (1.5-6.6); NEUTROPHILS % (AUTO) 54.8 %; PLT - PLATELET COUNT 180 10^3/uL (130-450); RED BLOOD COUNT 5.01 10^6/uL (4.70-6.10); RED CELL DISTRIBUTION WIDTH 13.7 % (12.0-15.0); WHITE BLOOD COUNT 6.2 x10^3/uL (4.8-10.8)
[2020-12-01 14:03] LABS: ALBUMIN 4.4 g/dL (3.2-5.5); ALBUMIN/GLOBULIN RATIO 1.4 (1.0-2.2); ALKALINE PHOSPHATASE 51 IU/L (42-121); ALT ALANINE AMINOTRANSFERASE 25 IU/L (10-60); AST ASPARTATE AMINOTRANSFERASE 21 IU/L (10-42); BILIRUBIN,TOTAL 0.7 mg/dL (0.2-1.0); BUN - BLOOD UREA NITROGEN 15 mg/dL (6-20); CALCIUM 9.4 mg/dL (8.5-10.3); CARBON DIOXIDE - CO2 27 mmol/L (21-32); CHLORIDE 102 mmol/L (101-111); CHOL/HDL RATIO 3.8 (<5.0); CHOLESTEROL 127 mg/dL; CREATININE 0.9 mg/dL (0.6-1.2); GFR - MDRD 83 (>89); GLUCOSE 122 mg/dL (70-100); HDL CHOLESTEROL 33 mg/dL; LDL CHOLESTEROL,CALCULATED 62 mg/dL; LDL/HDL RATIO 1.9 (<3.6); POTASSIUM 3.9 mmol/L (3.5-5.0); SODIUM 137 mmol/L (135-145); TOTAL PROTEIN 7.6 g/dL (6.7-8.2); TRIGLYCERIDES 160 mg/dL; VLDL CHOLESTEROL 32 mg/dL
== END 2020-12-01 13:31 | disposition home or self-care (01) ==
LOC: LAB 13:30
PROVIDERS: ATTEND Internal Medicine
DX: I10 Essential (primary) hypertension (principal); E78.5 Hyperlipidemia, unspecified; R97.20 Elevated prostate specific antigen [PSA]
CPT/HCPCS: 36415; 80053; 80061; 83721; 84153; 85025

== ENCOUNTER 2021-03-26 10:12 | Outpatient (CLI) | payer MEDICARE, OTHER ==
[2021-03-26 10:22] LABS: BASOPHILS # (AUTO) 0.1 10^3/uL (0.0-0.1); BASOPHILS % (AUTO) 0.9 %; EOSINOPHILS # (AUTO) 0.1 10^3/uL (0.0-0.7); EOSINOPHILS % (AUTO) 1.2 %; HCT - HEMATOCRIT 43.1 % (42.0-52.0); HGB - HEMOGLOBIN 14.3 g/dL (14.0-18.0); LYMPHOCYTES # (AUTO) 1.9 10^3/uL (1.5-3.5); LYMPHOCYTES % (AUTO) 28.4 %; MEAN CORPUSCULAR HEMOGLOBIN 28.6 pg (27.0-31.0); MEAN CORPUSCULAR HGB CONC 33.2 g/dL (32.0-36.0); MEAN CORPUSCULAR VOLUME 86.2 fL (80.0-94.0); MEAN PLATELET VOLUME 9.8 fL (7.4-11.4); MONOCYTES # (AUTO) 0.6 10^3/uL (0.0-1.0); MONOCYTES % (AUTO) 8.6 %; NEUTROPHILS % (AUTO) 60.6 %; PLT - PLATELET COUNT 171 10^3/uL (130-450); RED CELL DISTRIBUTION WIDTH 13.4 % (12.0-15.0); WHITE BLOOD COUNT 6.6 x10^3/uL (4.8-10.8)
[2021-03-26 10:37] LABS: ALBUMIN 4.2 g/dL (3.2-5.5); ALBUMIN/GLOBULIN RATIO 1.3 (1.0-2.2); CALCIUM 9.1 mg/dL (8.5-10.3); POTASSIUM 3.7 mmol/L (3.5-5.0); TOTAL PROTEIN 7.4 g/dL (6.7-8.2)
[2021-03-26 12:17] LABS: ESTIMATED AVERAGE GLUCOSE 157 mg/dL (70-100); HEMOGLOBIN A1c% 7.1 % (4.27-6.07)
== END 2021-03-26 10:13 | disposition home or self-care (01) ==
LOC: LAB 10:12
PROVIDERS: ATTEND Internal Medicine
DX: E11.9 Type 2 diabetes mellitus without complications (principal); Z79.01 Long term (current) use of anticoagulants
CPT/HCPCS: 36415; 80053; 83036; 85025

== ENCOUNTER 2022-01-27 11:28 | Outpatient (CLI) | payer MEDICARE, OTHER ==
[2022-01-27] MEDS ORDERED: GADOBUTROL 15 MMOL/15 ML VIAL ONE (12:21)
[2022-01-27] MEDS: GADOBUTROL 15 MMOL/15 ML VIAL IVP ONE (15:27)
--- NOTE | 2022-01-27 21:35 | MRI Report ---
PROCEDURE: PELVIS W/WO INDICATIONS: ELEVATED PSA CONTRAST: gadavist 12.4ml TECHNIQUE: Coronal ultra fast SE, axial T1 FSE with fat saturation, 3-plane nonbreath-hold T2 FSE. After the ad ministration of contrast, dynamic axial, delayed axial and coronal ultra fast GE or 2-D spoiled GE wi th fat saturation through the pelvis. diffusion weighted imaging and ADC performed. COMPARISON: MR abdomen pelvis 01/13/2014. FINDINGS: Image quality: Diffusion weighted and dynamic contrast enhanced images are diagnostic. Prostate: Gland size is 7.7 x 6.7 x 7.2 cm; ellipsoid gland volume is 193 mL. Asymmetry of the seminal vesicles is present, with T2 hypointensity present within the left seminal v esicle. Allowing for differences in exam technique this appears similar to the previous study, could be postinflammatory but is nonspecific. In comparison with the previous exam, suspect that there are findings of extruded BPH at the right posterior prostate at the level of the mid gland. Lesion #1: Size - 1.6 x 0.8 cm. Location - right posterior medial peripheral zone, gland apex (for example calculated B value diffusi on series 12 image 19). T2 signal - heterogeneous signal intensity. ADC signal - mild DWI hyperintensity without substantial ADC hypointensity. DCE - negative. CINDY - No large volume bulky extraprostatic extension. However, there is long segment abutment of the lesion against the prostate pseudocapsule, difficult to exclude early extraprostatic extension. Seminal vesicle invasion - absent. PI-RADS: T2 signal - 3; DWI - 3; DCE - negative; PI-RADS: 3. Genitourinary system: Bladder wall thickness is normal. Distal ureters are non distended. Bowel and peritoneum: No pathologic free pelvic fluid. Inferior colon and small bowel loops are nor mal in caliber. Nodes and vessels: No pelvic or inguinal adenopathy by size criteria. Iliac vessels are normal in c aliber. Bones: No definite suspicious bony lesions. IMPRESSION: 1. Pronounced findings of BPH with approximate prostate volume of 193 mL. 2. A 1.6 cm region of signal abnormality at the right peripheral zone, gland apex, is consistent with PI-RADS Category 3. 3. No suspicious lymph nodes identified in the imaged pelvis. Reviewed by: Mika Fleming MD on 01/27/2022 9:34 PM PST Approved by: Mika Fleming MD on 01/27/2022 9:34 PM PST Station ID: [id number]
== END 2022-01-27 11:29 | disposition home or self-care (01) ==
LOC: DI 11:28
PROVIDERS: ATTEND Urology
DX: R97.20 Elevated prostate specific antigen [PSA] (principal); N40.0 Benign prostatic hyperplasia without lower urinary tract symptoms
CPT/HCPCS: 36415; 72197; 80048; A9585

== ENCOUNTER 2022-01-27 11:30 | Outpatient (CLI) | payer MEDICARE, OTHER ==
[2022-01-27 12:16] LABS: CALCIUM 9.3 mg/dL (8.5-10.3); CREATININE 1.1 mg/dL (0.6-1.2); POTASSIUM 4.2 mmol/L (3.5-5.0)
== END 2022-01-27 11:31 | disposition home or self-care (01) ==
LOC: LAB 11:30
PROVIDERS: ATTEND Urology
DX: N40.0 Benign prostatic hyperplasia without lower urinary tract symptoms (principal)
CPT/HCPCS: 36415; 80048

== ENCOUNTER 2022-03-02 11:39 | Outpatient (CLI) | payer MEDICARE, OTHER ==
[2022-03-02 12:08] LABS: ESTIMATED AVERAGE GLUCOSE 154 mg/dL (70-100)
[2022-03-02 12:15] LABS: % IRON SATURATION 26 % (20-50); IRON 108 ug/dL (45-182); TOTAL IRON BINDING CAPACITY 409 ug/dL (250-450); TRANSFERRIN 292 mg/dL (180-329)
== END 2022-03-02 11:40 | disposition home or self-care (01) ==
LOC: LAB 11:39
PROVIDERS: ATTEND Physician Assistant
DX: D64.9 Anemia, unspecified (principal); R73.09 Other abnormal glucose
CPT/HCPCS: 36415; 82728; 83036; 83540; 84466

== ENCOUNTER 2022-05-04 09:20 | Outpatient (CLI) | payer MEDICARE, OTHER ==
[2022-05-04 10:31] LABS: PSA FREE 1.822 ng/mL (0.16-2.81)
[2022-05-04 10:32] LABS: PSA TOTAL 6.566 ng/mL (0.000-2.000)
== END 2022-05-04 09:21 | disposition home or self-care (01) ==
LOC: LAB 09:20
PROVIDERS: ATTEND Urology
DX: R97.20 Elevated prostate specific antigen [PSA] (principal)
CPT/HCPCS: 36415; 84153; 84154

== ENCOUNTER 2022-12-16 12:44 | Outpatient (CLI) | payer MEDICARE, OTHER | END 2022-12-16 12:45 | disposition home or self-care (01) | LOC: LAB 12:44 | PROVIDERS: ATTEND Urology | DX: R97.20 Elevated prostate specific antigen [PSA] (principal) | CPT/HCPCS: 36415; 84153 ==

== ENCOUNTER 2023-04-14 10:58 | Outpatient (CLI) | payer MEDICARE, OTHER | END 2023-04-14 10:59 | disposition home or self-care (01) | LOC: LAB 10:58 | PROVIDERS: ATTEND Urology | DX: R97.20 Elevated prostate specific antigen [PSA] (principal) | CPT/HCPCS: 36415; 84153; 84154 ==

== ENCOUNTER 2023-04-16 08:05 | Outpatient (CLI) | payer MEDICARE, OTHER ==
[2023-04-16 08:48] LABS: CREATININE,URINE 185.4 mg/dL
[2023-04-16 08:48] LABS: ALBUMIN 4.2 g/dL (3.2-5.5); ALBUMIN/GLOBULIN RATIO 1.6 (1.0-2.2); ALKALINE PHOSPHATASE 56 IU/L (42-121); ALT ALANINE AMINOTRANSFERASE 20 IU/L (10-60); AST ASPARTATE AMINOTRANSFERASE 16 IU/L (10-42); BILIRUBIN,TOTAL 1.1 mg/dL (0.2-1.0); BUN - BLOOD UREA NITROGEN 16 mg/dL (6-20); CALCIUM 9.8 mg/dL (8.5-10.3); CARBON DIOXIDE - CO2 32 mmol/L (21-32); CHLORIDE 100 mmol/L (101-111); CHOL/HDL RATIO 3.9 (<5.0); CHOLESTEROL 112 mg/dL; DIGOXIN 1.6 ng/mL; GFR - MDRD 73 (>89); GLUCOSE 164 mg/dL (74-104); HDL CHOLESTEROL 29 mg/dL; LDL CHOLESTEROL,CALCULATED 41 mg/dL; LDL/HDL RATIO 1.4 (<3.6); POTASSIUM 3.7 mmol/L (3.5-4.5); SODIUM 138 mmol/L (135-145); TOTAL PROTEIN 6.9 g/dL (6.4-8.9); TRIGLYCERIDES 208 mg/dL (48-352); VLDL CHOLESTEROL 42 mg/dL
[2023-04-16 09:00] LABS: MICROALBUM/CREATININE RATIO,UR 338.2 ug/mg (<30.0); MICROALBUMIN,URINE 62.7 mg/dL
[2023-04-16 09:07] LABS: ESTIMATED AVERAGE GLUCOSE 148 mg/dL (70-100); HEMOGLOBIN A1c% 6.8 % (4.27-6.07)
[2023-04-16 10:03] LABS: BASOPHILS # (AUTO) 0.1 10^3/uL (0.0-0.1); BASOPHILS % (AUTO) 0.7 %; EOSINOPHILS # (AUTO) 0.1 10^3/uL (0.0-0.7); EOSINOPHILS % (AUTO) 1.3 %; HCT - HEMATOCRIT 43.1 % (42.0-52.0); HGB - HEMOGLOBIN 14.1 g/dL (14.0-18.0); LYMPHOCYTES # (AUTO) 1.6 10^3/uL (1.5-3.5); LYMPHOCYTES % (AUTO) 22.9 %; MEAN CORPUSCULAR HEMOGLOBIN 28.6 pg (27.0-31.0); MEAN CORPUSCULAR HGB CONC 32.7 g/dL (32.0-36.0); MEAN CORPUSCULAR VOLUME 87.4 fL (80.0-94.0); MEAN PLATELET VOLUME 10.4 fL (7.4-11.4); MONOCYTES # (AUTO) 0.6 10^3/uL (0.0-1.0); MONOCYTES % (AUTO) 8.1 %; NEUTROPHILS # (AUTO) 4.5 10^3/uL (1.5-6.6); NEUTROPHILS % (AUTO) 66.7 %; PLT - PLATELET COUNT 184 10^3/uL (130-450); RED BLOOD COUNT 4.93 10^6/uL (4.70-6.10); RED CELL DISTRIBUTION WIDTH 13.5 % (12.0-15.0); WHITE BLOOD COUNT 6.8 x10^3/uL (4.8-10.8)
== END 2023-04-16 08:06 | disposition home or self-care (01) ==
LOC: LAB 08:05
PROVIDERS: ATTEND Internal Medicine Cardiovascular Disease
DX: E78.5 Hyperlipidemia, unspecified (principal); I10 Essential (primary) hypertension; I71.21 Aneurysm of the ascending aorta, without rupture; I48.91 Unspecified atrial fibrillation; M15.9 Polyosteoarthritis, unspecified; Z86.79 Personal history of other diseases of the circulatory system; R35.1 Nocturia; Z12.11 Encounter for screening for malignant neoplasm of colon; R97.20 Elevated prostate specific antigen [PSA]; L60.0 Ingrowing nail; E11.9 Type 2 diabetes mellitus without complications; Z12.5 Encounter for screening for malignant neoplasm of prostate; J18.9 Pneumonia, unspecified organism; N40.1 Benign prostatic hyperplasia with lower urinary tract symptoms; N13.8 Other obstructive and reflux uropathy
CPT/HCPCS: 36415; 80053; 80061; 80162; 82043; 82570; 83036; 83721; 83880; 85025

== ENCOUNTER 2023-04-21 13:15 | Outpatient (CLI) | payer MEDICARE, OTHER ==
[2023-04-21] MEDS ORDERED: iohexoL-300 100 ML VIAL ONE (13:17)
[2023-04-21] MEDS: iohexoL-300 100 ML VIAL IVP ONE (14:35)
--- NOTE | 2023-04-28 14:55 | CT Report ---
PROCEDURE: Angio Chest INDICATIONS: AAA CONTRAST: Omni 300- 80ml TECHNIQUE: After the administration of intravenous contrast, 2 mm axial images were acquired from the pulmonary apices to the posterior costophrenic angles during the arterial phase. In addition, 1 mm lung kernel and 5 mm soft tissue kernel reconstructions were performed. 3-dimensional coronal oblique maximum int ensity projection (MIP) reformats, 8 mm axial MIP, and 5 mm coronal and sagittal MPR reformats were t hen performed through the thorax. For radiation dose reduction, the following was used: automated exp osure control, adjustment of mA and/or kV according to patient size. This study was received for interpretation on 04/28/2023 COMPARISON: None. FINDINGS: Image quality: Excellent. Large vessels: No filling defects within the opacified pulmonary arteries, accounting for motion and contrast timing dilation of the ascending aorta up to 4.6 cm quantifies for aneurysm. A large number of tortuous arterial enhancing vessels seen in the region of the right hilum, behind the right mainst em bronchus extending into the posterior mediastinum of unknown etiology. Lungs and pleura: No consolidation. No pleural effusions. No pneumothorax. No suspicious pulmonary n odules which require follow up. Mediastinum: Heart size is enlarged. No pericardial effusion. No large vessel abnormality. No mediast inal adenopathy by size criteria. Chest wall and lower neck: Thyroid is unremarkable. No axillary or supraclavicular adenopathy by size . Bones: No aggressive osseous abnormality. Upper Abdomen: Partially visualized renal cysts/cystic structures, incompletely evaluated. IMPRESSION: 1. Cardiomegaly 2. Fusiform ascending aortic ectasia measuring up to 4.6 cm in largest diameter . Recommend endovascu lar/vascular surgical consult. 3. Large number of abnormal arterial enhancing tortuous vessels in the region of the posterior medias tinum, extending into the right hilum are of unknown etiology; differential diagnosis includes large arteriovenous fistula, hypertrophied right Sbronchial arteries. The appear to arise from the thoracic aorta anteriorly at the level of the norbert. If indicated, contrast angiogram may provide additional diagnostic benefit. Reviewed by: Avtar Jo MD on 04/28/2023 2:54 PM PDT Approved by: Avtar Jo MD on 04/28/2023 2:54 PM PDT Station ID: [id number]
== END 2023-04-21 13:16 | disposition home or self-care (01) ==
LOC: DI 13:15
PROVIDERS: ATTEND Internal Medicine Cardiovascular Disease
DX: I71.21 Aneurysm of the ascending aorta, without rupture (principal); I51.7 Cardiomegaly; I77.1 Stricture of artery
CPT/HCPCS: 71275; Q9967

== ENCOUNTER 2023-05-17 11:28 | Outpatient (CLI) | payer MEDICARE, OTHER | END 2023-05-17 11:29 | disposition home or self-care (01) | LOC: LAB 11:28 | PROVIDERS: ATTEND Urology | DX: R97.20 Elevated prostate specific antigen [PSA] (principal) | CPT/HCPCS: 36415; 84153; 84154 ==

== ENCOUNTER 2023-08-10 08:40 | Outpatient (CLI) | payer MEDICARE, OTHER | END 2023-08-10 08:41 | disposition home or self-care (01) | LOC: LAB 08:40 | PROVIDERS: ATTEND Urology | DX: R97.20 Elevated prostate specific antigen [PSA] (principal) | CPT/HCPCS: 36415; 84153; 84154 ==

== ENCOUNTER 2023-10-19 08:05 | Outpatient (CLI) | payer MEDICARE, OTHER ==
[2023-10-19 08:38] LABS: ALBUMIN 4.2 g/dL (3.2-5.5); ALBUMIN/GLOBULIN RATIO 1.6 (1.0-2.2); CALCIUM 9.8 mg/dL (8.5-10.3); CREATININE 0.9 mg/dL (0.6-1.3); POTASSIUM 3.5 mmol/L (3.5-4.5); TOTAL PROTEIN 6.8 g/dL (6.4-8.9)
[2023-10-19 08:39] LABS: CREATININE,URINE 115.2 mg/dL; MICROALBUM/CREATININE RATIO,UR 386.3 ug/mg (<30.0); MICROALBUMIN,URINE 44.5 mg/dL
[2023-10-19 10:07] LABS: ESTIMATED AVERAGE GLUCOSE 166 mg/dL (70-100); HEMOGLOBIN A1c% 7.4 % (4.27-6.07)
== END 2023-10-19 08:06 | disposition home or self-care (01) ==
LOC: LAB 08:05
PROVIDERS: ATTEND Internal Medicine
DX: E11.9 Type 2 diabetes mellitus without complications (principal); R80.9 Proteinuria, unspecified
CPT/HCPCS: 36415; 80053; 82043; 82570; 83036

== ENCOUNTER 2023-10-28 09:54 | Outpatient (CLI) | payer MEDICARE, OTHER ==
--- NOTE | 2023-10-28 21:05 | XRAY Report ---
PROCEDURE: Foot 3+V RT INDICATIONS: DM TECHNIQUE: 3 views of the foot were acquired. COMPARISON: None. FINDINGS: Diffuse osseous demineralization. No fracture or dislocation, specifically of the 2nd digit. Moderate hallux valgus with lateralization of the hallux sesamoids. Mild 1st MTP osteoarthritis. The Lisfranc interval is preserved on the nonweightbearing view. No osseous erosions or radiographic evidence of subcutaneous emphysema. IMPRESSION: No acute fracture or dislocation of the right foot. Reviewed by: Marky Kennedy MD on 10/28/2023 9:03 PM PDT Approved by: Marky Kennedy MD on 10/28/2023 9:03 PM PDT Station ID: [id number]
== END 2023-10-28 09:55 | disposition home or self-care (01) ==
LOC: DI 09:54
PROVIDERS: ATTEND Internal Medicine
DX: M19.071 Primary osteoarthritis, right ankle and foot (principal)

== ENCOUNTER 2023-11-02 13:52 | Outpatient (CLI) | payer MEDICARE, OTHER ==
[2023-11-02 14:04] LABS: BASOPHILS % (AUTO) 0.6 %; EOSINOPHILS # (AUTO) 0.1 10^3/uL (0.0-0.7); EOSINOPHILS % (AUTO) 1.3 %; HCT - HEMATOCRIT 38.1 % (42.0-52.0); HGB - HEMOGLOBIN 12.7 g/dL (14.0-18.0); LYMPHOCYTES # (AUTO) 1.8 10^3/uL (1.5-3.5); MEAN CORPUSCULAR HEMOGLOBIN 28.7 pg (27.0-31.0); MEAN CORPUSCULAR HGB CONC 33.3 g/dL (32.0-36.0); MEAN CORPUSCULAR VOLUME 86.2 fL (80.0-94.0); MEAN PLATELET VOLUME 9.7 fL (7.4-11.4); MONOCYTES # (AUTO) 0.8 10^3/uL (0.0-1.0); NEUTROPHILS # (AUTO) 4.3 10^3/uL (1.5-6.6); PLT - PLATELET COUNT 205 10^3/uL (130-450); RED BLOOD COUNT 4.42 10^6/uL (4.70-6.10); RED CELL DISTRIBUTION WIDTH 13.7 % (12.0-15.0)
== END 2023-11-02 13:53 | disposition home or self-care (01) ==
LOC: LAB 13:52
PROVIDERS: ATTEND Internal Medicine
DX: E11.42 Type 2 diabetes mellitus with diabetic polyneuropathy (principal); L08.9 Local infection of the skin and subcutaneous tissue, unspecified
CPT/HCPCS: 36415; 85025; 85651; 86140